=== PATIENT | female | born 1965 | race Caucasian/White ===

== ENCOUNTER → 2017-06-10 11:43 | Outpatient (CLI) | payer BC, SELFPAY ==
[2017-06-10 12:22] LABS: Basophils % 0.2 % (0.1-2.0); Eosinophils # 0.2 K/mm3 (0.0-0.4); Hematocrit 43.1 % (37.0-47.0); Hemoglobin 14.4 g/dL (12.2-16.2); Lymphocytes # 1.9 K/mm3 (0.7-4.5); Lymphocytes % 22.9 K/mm3 (10-50); Mean Corpuscular HGB Conc 33.4 g/dL (31.8-35.4); Mean Corpuscular Hemoglobin 27.4 pg (27.0-31.2); Mean Corpuscular Volume 82.1 fl (81-99); Mean Platelet Volume 7.5 fl (7.4-10.4); Monocytes # 0.4 K/mm3 (0.1-1.0); Monocytes % 4.9 % (1.7-9.3); Neutrophils # 5.8 K/mm3 (1.8-7.8); Platelet Count 295 K/mm3 (142-424); Red Blood Count 5.25 M/mm3 (4.20-5.40); Red Cell Distribution Width 14.3 % (11.5-17.5); White Blood Count 8.3 K/mm3 (4.8-10.8)
[2017-06-10 14:09] LABS: Alanine Aminotransferase 38 U/L (12-78); Albumin Level 3.8 gm/dL (3.4-5.0); Albumin/Globulin Ratio 1.4 (1.1-1.8); Alkaline Phosphatase 104 U/L (46-116); Anion Gap 13.2 mEq/L (5-15); Aspartate Amino Transferase 19 U/L (15-37); Bilirubin,Total 0.3 mg/dL (0.2-1.0); Blood Urea Nitrogen 14 mg/dL (7-18); Calcium 9.3 mg/dL (8.5-10.1); Carbon Dioxide 29 mmol/L (21.0-32.0); Chloride 102 mmol/L (98-107); Estimated Glomerular Filt Rate 105 ml/min (>60); GFR (African American) 127 ML/MIN (>60); Globulin 2.8 gm/dl (1.3-3.2); Glucose 99 mg/dL (74-106); Potassium 3.2 mmoL/L (3.5-5.1); Sodium 141 mmol/L (136-145); Total Protein,Serum 6.6 gm/dL (6.4-8.2)
[2017-06-10 15:26] LABS: Erythrocyte Sedimentation Rate 25 mm/hr (0-30)
== END ==
PROVIDERS: PCP Internal Medicine Adolescent Medicine; Visit Provider Internal Medicine Adolescent Medicine
DX: R51 Headache (principal)
CPT/HCPCS: 36415; 80053; 85025; 85651

== ENCOUNTER → 2017-06-10 12:41 | Outpatient (CLI) | payer BC, SELFPAY ==
--- NOTE | 2017-06-10 12:58 | MR_ITS ---
MR head/brain wo con HISTORY: Severe right-sided temporal headache, visual disturbance ITS.REASON: RIGHT TEMPORAL HEADACHE ORDERING PHYSICIAN: Delio Arcos MD PATIENT AGE: 52 years COMPARISON: None TECHNIQUE: Standard multiplanar multiecho sequences are performed without contrast. FINDINGS: No midline shift, mass effect, intracranial hemorrhage, or hydrocephalus is evident. The cerebellopontine angles, cerebellum, and brainstem are unremarkable. No intra or extra-axial mass is apparent. The pituitary optic chiasm and corpus callosum are unremarkable. No cerebellar tonsillar ectopia. There are a few scattered periventricular subcortical T2 white matter hyperintensities. These are nonspecific and may be seen with ischemic gliotic foci from chronic microvascular changes. Migraine headache could cause these findings as well. Demyelinating process is felt to be less likely based on the imaging characteristics although not totally excluded. No large aneurysms evident. Small aneurysms may not be detected with this technique and may be better evaluated with MRA if clinically warranted. No mastoid effusion or sinus air-fluid level. IMPRESSION: 1. Scattered foci of periventricular and subcortical T2 white matter hyperintensities. These are nonspecific and may be seen with ischemic gliotic foci from chronic microvascular changes. Migraine headache could cause these findings as well. Demyelinating process is felt to be less likely based on the imaging characteristics although not totally excluded 2. Otherwise negative MRI of the brain without contrast
== END ==
PROVIDERS: Family Provider Internal Medicine Adolescent Medicine; PCP Internal Medicine Adolescent Medicine; Visit Provider Internal Medicine Adolescent Medicine
DX: R51 Headache (principal)
CPT/HCPCS: 70551

== ENCOUNTER → 2018-06-12 08:13 | Outpatient (CLI) | payer BC, SELFPAY ==
--- NOTE | 2018-06-12 08:15 | MM_ITS ---
MM Dig screening mamm BI w/CAD CAD Screening COMPARISON: Digital mammograms with CAD 04/29/2017 and 04/27/2016 INDICATION: There is no personal or family history of breast cancer TECHNIQUE: Standard CC and MLO images were obtained. R2 CAD reviewed. FINDINGS: The breasts are composed primarily of fat with minimal scattered fibroglandular densities in each breast. There is a mole marker near the axillary tail the right breast. There is a benign-appearing calcification left breast. There is no suspicious lesion and there are no suspicious microcalcifications. IMPRESSION: Fatty type breast parenchyma with no suspicious lesion seen BI-RADS Category: 2 Benign Finding(s) RECOMMENDED FOLLOW-UP: 1YR - 1 YEAR FOLLOW-UP (A letter has been sent to the patient regarding results of the study.)
== END ==
PROVIDERS: PCP Internal Medicine Adolescent Medicine; Visit Provider Obstetrics & Gynecology
DX: Z12.31 Encounter for screening mammogram for malignant neoplasm of breast (principal)
CPT/HCPCS: 77067

== ENCOUNTER → 2019-02-02 07:28 | Outpatient (CLI) | payer BC, SELFPAY ==
[2019-02-02 15:59] LABS: Alanine Aminotransferase 28 U/L (12-78); Albumin Level 3.6 gm/dL (3.4-5.0); Albumin/Globulin Ratio 1.3 (1.1-1.8); Alkaline Phosphatase 99 U/L (46-116); Anion Gap 10.3 mEq/L (5-15); Aspartate Amino Transferase 19 U/L (15-37); Bilirubin,Total 0.3 mg/dL (0.2-1.0); Blood Urea Nitrogen 20 mg/dL (7-18); Calcium 9.3 mg/dL (8.5-10.1); Carbon Dioxide 32 mmol/L (21.0-32.0); Chloride 104 mmol/L (98-107); Chol/HDL Ratio 3.5 (1-3.5); Cholesterol 190 mg/dL (140-200); Creatinine,Serum 0.48 mg/dL (0.55-1.02); Estimated Glomerular Filt Rate 135 ml/min (>60); GFR (African American) 164 ML/MIN (>60); Globulin 2.8 gm/dl (1.3-3.2); Glucose 91 mg/dL (74-106); HDL Cholesterol 55 mg/dL (29-89); LDL Cholesterol 119 mg/dL (0-130); Potassium 3.3 mmoL/L (3.5-5.1); Sodium 143 mmol/L (136-145); Total Protein,Serum 6.4 gm/dL (6.4-8.2); Triglycerides 79 mg/dL (30-200); VLDL Cholesterol 16 mg/dL (0-40)
== END ==
PROVIDERS: PCP Internal Medicine Adolescent Medicine; Visit Provider Internal Medicine Adolescent Medicine
DX: I10 Essential (primary) hypertension (principal); E78.5 Hyperlipidemia, unspecified
CPT/HCPCS: 36415; 80053; 80061

== ENCOUNTER → 2019-06-14 08:20 | Outpatient (CLI) | payer BC, SELFPAY ==
--- NOTE | 2019-06-14 08:20 | MM_ITS ---
PROCEDURE: MM DIG SCREENING MAMM BI W/CAD CLINICAL INDICATION: screening There is no personal or family history of breast cancer. The patient is on estrogen COMPARISON: [facility] DIG MAMM-SCREEN CHRISTY from 04/27/2016 [facility] DIG MAMM-SCREEN CHRISTY W/CAD from 04/29/2017 [facility] MM Dig screening mamm BI w/CAD from 06/12/2018 TECHNIQUE: Standard CC and MLO images and 3D Tomosynthisis was obtained. R2 CAD reviewed. FINDINGS: Minimal scattered fibroglandular densities are seen throughout both breasts on a background of fatty breast parenchyma. There is a small benign-appearing nodular density near the axillary tail right breast likely a low-lying node. There is no suspicious lesion in either breast and no suspicious microcalcifications. Ronak images were reviewed. IMPRESSION: Fibrofatty parenchyma with no suspicious lesions seen BI-RAD Category: 2 Benign Finding(s) FOLLOW-UP: 1YR 1 Year Follow-up (A letter has been sent to the patient regarding results of the study.) Dictated by: Dr. Prashanth Butler MD 06/15/2019 08:[address] Prashanth Butler MD in [place] 06/15/2019 08:51
--- NOTE | 2019-06-14 08:20 | XR_ITS ---
PROCEDURE: XR DEXA AXIAL SKELETON CLINICAL HISTORY: screening COMPARISON: No exams were available for comparison FINDINGS: Right femoral neck density is 1.029 grams/centimeters sq with a T-score of 0.7 which is normal. Left femoral neck density is 1.006 grams/centimeters sq with a T-score of 0 point which is normal. L1-L4 density has a T-score of 0.5 with a density of 1.102 which is normal IMPRESSION: Normal bone density. Recommend follow-up exam in 2 years Dictated by: Adan Valiente MD 06/14/2019 16:49 Electronically signed by Adan Valiente MD in [place] 06/14/2019 16:49
== END ==
PROVIDERS: PCP Internal Medicine Adolescent Medicine; Visit Provider Obstetrics & Gynecology
DX: Z12.31 Encounter for screening mammogram for malignant neoplasm of breast (principal); Z78.0 Asymptomatic menopausal state
CPT/HCPCS: 77063; 77067; 77080

== ENCOUNTER → 2020-06-24 16:51 | Outpatient (CLI) | payer BC, SELFPAY ==
--- NOTE | 2020-06-24 16:51 | MM_ITS ---
PROCEDURE: MM DIG SCREENING MAMM BI W/CAD Digital Breast Tomosynthesis Included CLINICAL INDICATION: Routine Screening Mammogram There is no personal or family history of breast cancer. COMPARISON: MG [facility] DIG MAMM-SCREEN CHRISTY W/CAD from 04/29/2017 MG [facility] MM Dig screening mamm BI w/CAD from 06/12/2018 MG MM DIG SCREENING MAMM BI W/CAD from 06/14/2019 TECHNIQUE: Standard CC and MLO images and 3D Tomosynthesis was obtained. R2 CAD reviewed. FINDINGS: The breasts are composed primarily of fat with very minimal scattered fibroglandular densities in each breast. There are couple mole markers on each breast. There is a benign-appearing calcification left breast. There is no suspicious lesion in either breast and no suspicious microcalcifications. There are stable small nodes in both axilla. IMPRESSION: Fatty type breast parenchyma with no suspicious lesions seen BI-RAD Category: 2 Benign Finding(s) FOLLOW-UP: 1YR 1 Year Follow-up (A letter has been sent to the patient regarding results of the study.) Dictated by: Dr. Prashanth Butler MD 06/27/2020 11:13 Dr. Prashanth Butler MD in [place] 06/27/2020 11:13
== END ==
PROVIDERS: PCP Internal Medicine Adolescent Medicine; Visit Provider Obstetrics & Gynecology
DX: Z12.31 Encounter for screening mammogram for malignant neoplasm of breast (principal)
CPT/HCPCS: 77063; 77067

== ENCOUNTER → 2021-04-01 07:57 | Outpatient (CLI) | payer BC, SELFPAY ==
[2021-04-01 14:49] LABS: Basophils # 0.1 K/mm3 (0-0.2); Basophils % 1.9 % (0.1-2.0); Eosinophils # 0.2 K/mm3 (0.0-0.4); Hemoglobin 13.6 g/dL (12.2-16.2); Lymphocytes # 1.4 K/mm3 (0.7-4.5); Lymphocytes % 27.9 % (10-50); Mean Corpuscular HGB Conc 33.3 g/dL (31.8-35.4); Mean Corpuscular Hemoglobin 27.4 pg (27.0-31.2); Mean Corpuscular Volume 82.5 fl (81-99); Mean Platelet Volume 9.2 fl (7.4-10.4); Monocytes # 0.3 K/mm3 (0.1-1.0); Monocytes % 6.7 % (1.7-9.3); Neutrophils % 59.5 % (37.0-80.0); Platelet Count 285 K/mm3 (142-424); Red Blood Count 4.97 M/mm3 (4.20-5.40); Red Cell Distribution Width 14.7 % (11.5-17.5)
[2021-04-01 15:41] LABS: Alanine Aminotransferase 31 U/L (12-78); Albumin Level 3.8 g/dl (3.5-5.0); Albumin/Globulin Ratio 1.6 (1.1-1.8); Alkaline Phosphatase 92 U/L (38-126); Anion Gap 7.2 mEq/L (5-15); Aspartate Amino Transferase 31 U/L (14-36); Bilirubin,Total 0.2 mg/dl (0.2-1.3); Blood Urea Nitrogen 22 mg/dl (7-17); Calcium 9.2 mg/dl (8.4-10.2); Carbon Dioxide 35 mmol/L (22.0-30.0); Chloride 101 mmol/L (98-107); Cholesterol 180 mg/dl (140-200); Estimated Glomerular Filt Rate 104 ml/min (>60); GFR (African American) 126 ML/MIN (>60); Globulin 2.4 g/dL (1.3-3.2); Glucose 106 mg/dl (74-100); HDL Cholesterol 60 mg/dl (40-60); Potassium 3.2 mmoL/L (3.5-5.1); Sodium 140 mmol/L (136-145); Total Protein,Serum 6.2 g/dl (6.3-8.2); Triglycerides 95 mg/dl (30-150); VLDL Cholesterol 19 mg/dL (0-40)
[2021-04-01 15:52] LABS: Direct LDL Cholesterol 100.91 mg/dL (100-129)
[2021-04-01 16:00] LABS: Triiodothryronine (T3) Uptake 28 % (23.5-40.5)
[2021-04-01 16:01] LABS: Free Thyroxine Index 3.6 ug/dL (5.93-13.13)
[2021-04-01 16:29] LABS: Vitamin B12 435 pg/mL (239-931)
== END ==
PROVIDERS: PCP Internal Medicine Adolescent Medicine; Visit Provider Internal Medicine Adolescent Medicine
DX: R00.2 Palpitations (principal); E78.5 Hyperlipidemia, unspecified; E66.9 Obesity, unspecified; Z68.41 Body mass index [BMI] 40.0-44.9, adult
CPT/HCPCS: 36415; 80053; 80061; 82607; 84436; 84443; 84479; 85025; 93225; 93226

== ENCOUNTER 2021-06-27 16:02 | Emergency (ER) | payer BC, SELFPAY ==
--- NOTE | 2021-06-27 16:21 | HMH.EDUTC ---
[facility] Disposition Clinical Impression: Exposure to COVID-19 virus, Viral syndrome Disposition: Home, Self-Care Condition on Discharge: Good Instructions: Preventing the Spread of Coronavirus Discharge Instructions, DI for COVID-19 (Suspected or Confirmed ), DI for Viral Syndrome Additional Instructions: Drink plenty of fluids. Take tylenol or ibuprofen for pain or fever. Take the medications as directed. Follow up with your regular doctor. GO TO THE ER FOR ANY WORSENING SYMPTOMS Quarantine until you know the results of your covid-19 test. Notify your school or workplace of your results and follow their instructions regarding return to work/school. The cough medication (promethazine dm) will make you drowsy, so don't drive or operate heavy machinery after taking it. Prescriptions: Promethazine/Dextromethorphan [Promethazine-Dm Syrup] 5 ml PO Q6HP PRN #240 ml PRN Reason: Cough Transmission Status: [facility] Ondansetron [Zofran 4mg ODT] 4 mg PO Q8HP PRN #20 tab PRN Reason: Nausea Transmission Status: [facility] to [id number] Azithromycin [Z-Pravin 250mg Tab*] 250 mg PO UD DOSE PK #6 tab Transmission Status: P[facility] to [facility] Referrals: Delio Arcos MD [Primary Care Provider] - Time of Disposition: 17:16 Medical Decision Making - Medical Records Medical records reviewed: No: I reviewed the patient's medical records. - Rodney Inquiry Pt receiving controlled substance: No Vital Signs: 06/27/21 16:32 Temperature 98.1 F Temperature Source Oral Pulse Rate [Left] 78 Respiratory Rate 18 Blood Pressure [Right Arm] 197/85 H Blood Pressure Mean [Right Arm] 122 02 Sat by Pulse Oximetry 95 - Lab Data Lab results reviewed: Yes: I reviewed the patient's lab results. Orders (Tests/Meds): ORDERS Category Date Time Status Covid-19 Nasal PCR ([facility]) Routine Lab 06/27/21 16:18 Received [facility] HPI - General Stated complaint: covid test Time Seen by Provider: 06/27/21 16:22 - History of Present Illness Provider Complaint: She states that she started to feel bad yesterday. She has taken 2 home covid-19 test and both have had faint positive lines. She is her to confirm whether not she has covid-19 and to have a pcr covid-19 test that her work will accept. She has been fully vaccinated against covid-19. She denies any shortness of breath, but she has had a dry cough. She also has had body aches, chills and low grade fever. - Related Data Home Medications Medication Instructions Recorded Confirmed celecoxib 200 mg capsule 200 mg PO BID 04/02/18 05/19/18 famotidine 20 mg tablet 20 mg PO DAILY 04/02/18 05/19/18 losartan 100 1 tab PO DAILY 06/09/20 mg-hydrochlorothiazide 25 mg tablet Previous Rx's Medication Instructions Recorded Azithromycin [Z-Pravin 250mg Tab*] 250 mg PO UD DOSE PK #6 tab 06/27/21 Ondansetron [Zofran 4mg ODT] 4 mg PO Q8HP PRN #20 tab 06/27/21 Promethazine/Dextromethorphan 5 ml PO Q6HP PRN #240 ml 06/27/21 [Promethazine-Dm Syrup] Allergies Allergy/AdvReac Type Severity Reaction Status Date / Time No Known Allergies Allergy Verified 06/09/20 15:47 [facility] History - Hepatitis A Screen Attestation statement:: This patient has been screened for Hepatitis A risk factors. I have reviewed the patient's past medical history: Yes Medical History: Reports:: Gastroesophageal Reflux Disease(GERD), Hypertension Other Surgeries: Yes: Cholecystectomy, Hysterectomy-Partial, Tubal Ligation, Other Amputation: No Fractures: No Comment: 2004- BTC. 2004- LAVH,. 2007- EXCISION OF PROLAPSED TUBE. 2011- POLYP REMOVED FROM RT. EAR. 2012- LAP CHOLECYSTECTOMY - Social History Smoking Status: Former smoker Alcohol Intake: current Alcohol Intake Frequency:: a few times a week Substance Use Type: denies use Occupational Status: employed Housing: house Household Members: spouse Family Hx:: Heart Attack, Hy
[2021-06-27 16:32] VITALS: BP 197/85; PULSE 78; RESP 18; TEMP 36.7; O2SAT 95; BMI 48.0
[2021-06-27 17:27] VITALS: BP 197/85; PULSE 78; RESP 18; TEMP 36.7
== END 2021-06-27 17:28 | disposition home or self-care (01) ==
PROVIDERS: Emergency Provider Nurse Practitioner Family; PCP Internal Medicine Adolescent Medicine
DX: U07.1 COVID-19 (principal); I10 Essential (primary) hypertension; K21.9 Gastro-esophageal reflux disease without esophagitis; Z87.891 Personal history of nicotine dependence; Z79.899 Other long term (current) drug therapy
CPT/HCPCS: 99202; C9803; G0463; U0003; U0005

== ENCOUNTER 2022-01-30 17:46 | Emergency (ER) | payer BC, SELFPAY ==
[2022-01-30 18:27] VITALS: BP 177/85; PULSE 79; RESP 18; TEMP 37.3; O2SAT 97; BMI 46.5
[2022-01-30 18:31] LABS: UTC Strep Screen (Rapid) Negative (Negative)
--- NOTE | 2022-01-30 19:17 | EXP.UTC ---
Discharge Plan Disposition Patient Disposition: Home, Self-Care Condition: Good Prescriptions Prescriptions: New benzonatate 100 mg capsule 100 mg PO TID PRN (Reason: cough) Qty: 30 0RF azithromycin 250 mg tablet See Rx Instructions .ROUTE .COMPLEX Qty: 6 0RF Rx Instructions: For 250 mg dose pack: take 500 mg today (day 1), then 250 mg for 4 days (days 2-5) No Action losartan-hydrochlorothiazide 100-25 mg tablet 1 tab PO DAILY celecoxib [Celebrex] 200 mg capsule 200 mg PO BID famotidine 20 mg tablet 20 mg PO DAILY potassium chloride 10 mEq tablet extended release 10 meq PO DAILY Label Comments: TAKE 1 TABLET BY MOUTH ONCE DAILY trazodone 50 mg tablet 50 mg PO HS Label Comments: TAKE 1/2 TO 1 (ONE-HALF TO ONE) TABLET BY MOUTH AT NIGHT metoprolol succinate 50 mg tablet extended release 24 hr 50 mg PO DAILY Label Comments: TAKE 1 TABLET BY MOUTH ONCE DAILY Referrals Follow up/Referrals: Delio Arcos MD [Primary Care Provider] - See instructions Activity Restrictions/Add. Instructions Additional Instructions/Restrictions: Wait one week and if symptoms persist or worsen may start antibiotic. Increase fluids and rest. Clinical Impressions Clinical Impression: Acute upper respiratory infection Instructions Patient Instructions: DI for Viral Upper Respiratory Infection -- Adult, DI for Viral Pharyngitis Discharge ED Provider: Neeru Townsend [facility] General Stated complaint: Cough,cold Mode of Arrival: Ambulatory Source of Information: Patient Limitations: No Limitations Time Seen by Provider: 01/30/22 19:18 Description of Symptoms (Recalled from Triage Doc. by RN): pt comes in with c/o cough, sinus pressure, congestion, ear pressure and sore throat. symptoms began 3 days ago. HEENT Symptoms (Recalled from RN notes): Yes Resp Symptoms (Recalled from RN notes): Yes Skin Symptoms (Recalled from RN notes): No MS Symptoms (Recalled from RN notes): No Functional Status (Recalled from RN notes): n/a History of Present Illness Provider Complaint: Pt states that 3 days ago she started feeling ill with cough, clear sinus drainage, sore throat with blisters, and congestion. She has taken cough medication for her symptoms. She states that she did not take any of her medication today as she forgot. Related Data Home Medications Medication Instructions Recorded Confirmed celecoxib 200 mg capsule (Celebrex) 200 mg PO BID Arthritis 04/02/18 01/30/22 famotidine 20 mg tablet 20 mg PO DAILY GERD 04/02/18 01/30/22 losartan 100 1 tab PO DAILY High blood pressure 06/09/20 01/30/22 mg-hydrochlorothiazide 25 mg tablet metoprolol succinate 50 mg 50 mg PO DAILY High blood pressure 01/30/22 01/30/22 tablet,extended release 24 hr potassium chloride 10 mEq 10 meq PO DAILY Supplement 01/30/22 01/30/22 tablet,extended release trazodone 50 mg tablet 50 mg PO HS Insomnia 01/30/22 01/30/22 Previous Rx's Medication Instructions Recorded azithromycin 250 mg tablet See Rx Instructions PO .COMPLEX #6 01/30/22 tabs benzonatate 100 mg capsule 100 mg PO TID PRN cough #30 caps 01/30/22 Allergies Allergy/AdvReac Type Severity Reaction Status Date / Time No Known Allergies Allergy Verified 01/30/22 18:31 Worker's Comp Is this a Worker's Comp case?: No PFSH PFSH Social History Smoking Status: Former smoker alcohol intake: current substance use type: denies use current occupational status: employed Travel in the last 8 weeks: None household members: spouse housing: house ROS Obtained: Yes All systems reviewed & no additional complaints except as documented Constitutional Constitutional: Reports as per HPI, Reports fever(s) and Reports malaise Eyes Eyes: Reports system reviewed and no additional complaints, except as documented ENT Ears, Nose, Mouth, and Throat: Reports nasal congestion, Reports nasal discharge,
[2022-01-30 19:32] VITALS: BP 177/85; PULSE 79; RESP 18; TEMP 37.3
== END 2022-01-30 19:36 | disposition home or self-care (01) ==
PROVIDERS: Emergency Provider Nurse Practitioner Family; PCP Internal Medicine Adolescent Medicine
DX: U07.1 COVID-19 (principal); J02.9 Acute pharyngitis, unspecified; J06.9 Acute upper respiratory infection, unspecified; H92.03 Otalgia, bilateral; Z87.891 Personal history of nicotine dependence
CPT/HCPCS: 87880; 99213; C9803; G0463; U0003; U0005

== ENCOUNTER → 2022-07-23 07:54 | Outpatient (CLI) | payer BC, SELFPAY ==
--- NOTE | 2022-07-23 07:59 | MM_ITS ---
PROCEDURE INFORMATION: Exam: MG Bilateral Screening 3D Mammography Exam date and time: 07/23/2022 7:54 AM Age: 57 years old Clinical indication: Screening examination TECHNIQUE: Imaging protocol: Bilateral Screening tomosynthesis and 2D mammography including computer-aided detection (CAD) when performed. COMPARISON: 1. MG MM DIG SCREENING MAMM BI W/CAD 06/24/2020 4:55 PM 2. MG MM DIG SCREENING MAMM BI W/CAD 06/14/2019 8:37 AM FINDINGS: MAMMOGRAPHY: Breast composition: The breasts are almost entirely fatty. Mass: None. Architectural distortion: None. Calcifications: No suspicious calcifications. Asymmetric density: None. Skin thickening: None. Axillary adenopathy: None. IMPRESSION: No mammographic evidence of malignancy. Annual screening is recommended unless otherwise clinically indicated. ASSESSMENT: BI-RADS Category 1: Negative
== END ==
PROVIDERS: PCP Internal Medicine Adolescent Medicine; Visit Provider Obstetrics & Gynecology
DX: Z12.31 Encounter for screening mammogram for malignant neoplasm of breast (principal)
CPT/HCPCS: 77063; 77067

== ENCOUNTER → 2023-01-14 12:00 | Outpatient (CLI) | payer BC, SELFPAY | PROVIDERS: PCP Internal Medicine Adolescent Medicine; Visit Provider Nurse Practitioner Family | DX: R05.9 Cough, unspecified (principal) | CPT/HCPCS: 87635 ==

== ENCOUNTER 2023-06-21 11:41 | Emergency (ER) | payer BC, SELFPAY ==
--- NOTE | 2023-06-21 12:42 | ED_ITS ---
Discharge Plan Disposition Patient Disposition: Still a Patient Condition: Fair Prescriptions Prescriptions: No Action losartan-hydrochlorothiazide 100-25 mg tablet 1 tab PO DAILY celecoxib [Celebrex] 200 mg capsule 200 mg PO BID potassium chloride 10 mEq tablet extended release 10 meq PO DAILY Patient Comments: TAKE 1 TABLET BY MOUTH ONCE DAILY trazodone 50 mg tablet 50 mg PO HS Patient Comments: TAKE 1/2 TO 1 (ONE-HALF TO ONE) TABLET BY MOUTH AT NIGHT metoprolol succinate 50 mg tablet extended release 24 hr 50 mg PO DAILY Patient Comments: TAKE 1 TABLET BY MOUTH ONCE DAILY Referrals Follow up/Referrals: Delio Arcos MD [Primary Care Provider] - See instructions Clinical Impressions Clinical Impression: Blurred vision, Elevated blood pressure reading Discharge ED Provider: Lukasz Ziegler [facility] HPI General Stated complaint: blurry vision Time Seen by Provider: 06/21/23 12:42 History of Present Illness Provider Complaint: She states that she began having blurry vision on her drive to work this morning. She wasn't having any other symptoms, so she stopped and took out her contacts and put her glasses on. This did not help her blurry vision, so she called her pcp (Dr. Arcos). She was instructed to go to the ER. Once she got to the hospital she states that she began to feel some better so she signed in to the [facility] instead. She states at this time her vision feels better, but still not right . She is also having a mild headache located in the back of her head/upper neck. Related Data Home Medications Medication Instructions Recorded Confirmed celecoxib 200 mg capsule (Celebrex) 200 mg PO BID Arthritis 04/02/18 06/21/23 losartan 100 1 tab PO DAILY High blood pressure 06/09/20 06/21/23 mg-hydrochlorothiazide 25 mg tablet metoprolol succinate 50 mg 50 mg PO DAILY High blood pressure 01/30/22 06/21/23 tablet,extended release 24 hr potassium chloride 10 mEq 10 meq PO DAILY Supplement 01/30/22 06/21/23 tablet,extended release trazodone 50 mg tablet 50 mg PO HS Insomnia 01/30/22 06/21/23 Allergies Allergy/AdvReac Type Severity Reaction Status Date / Time No Known Allergies Allergy Verified 06/21/23 13:07 [facility] Disclaimer: The information contained in this section may have been updated after the patient was seen, as this information can be updated by other users. Medical History (Updated 06/21/23 @ 13:17 by Lukasz Ziegler APRN) Hypertension Surgical History History of hysterectomy Hx of cholecystectomy Hx of tubal ligation Family History Father Cancer Stomach Mother Diabetes Other Hypertension Social History Smoking Status: Former smoker alcohol intake: current substance use type: denies use current occupational status: employed Travel in the last 8 weeks: None household members: spouse housing: house ROS Obtained: Yes All systems reviewed & no additional complaints except as documented Constitutional Constitutional: Denies chills and Denies fever(s) Eyes Eyes: Denies eye discharge ENT Ears, Nose, Mouth, and Throat: Denies dizziness, Denies otalgia and Denies sore throat Cardiovascular Cardiovascular: Denies chest pain Respiratory Respiratory: Denies shortness of breath, Denies chest congestion, Denies cough, Denies stridor and Denies wheezing Gastrointestinal Gastrointestingal: Denies nausea or vomiting Musculoskeletal Musculoskeletal: Reports system reviewed and no additional complaints, except as documented and Denies arthralgias Integumentary/Breasts Skin/Breast: Denies rash Neurologic Neurologic: Denies dizziness and Denies paresthesias Allergic/Immunologic Allergic/Immunologic: Denies wheezing Physical Exam General General appearance: alert and in no apparent distress Head Head exam: atraumatic, normocephalic and normal inspection Eye Eye exam: Present normal appearance, PERRL and EOMI ENT ENT exam: Present normal exam, normal oropharynx, mucous membranes moist, TM's normal bilaterally and normal external ear exam Neck Neck exam: Present normal inspection, full ROM and trachea midline; Absent meningismus or lymphadenopathy Chest Chest inspection: Present normal inspection and symmetric chest wall rise; Absent tenderness Respiratory Respiratory exam: Present normal lung sounds bilaterally; Absent respiratory distress Cardiovascular Cardiovascular exam: Present regular rate and normal rhythm; Absent JVD Abdominal Exam Abdominal exam: Present soft and normal bowel sounds; Absent distention, tenderness or guarding Extremities Exam Extremities exam: Present normal inspection, full ROM and normal capillary refill; Absent calf tenderness Back Exam Back exam: Present normal inspection; Absent tenderness Neurological Exam Neurological exam: Present alert and oriented X3 Psychiatric Psychiatric exam: Present normal affect and normal mood Skin Skin exam: Present warm, dry, intact and normal color Lymphatic Lymphatic Findings: no adenopathy Medical Decision Making Medical Records Medical records reviewed: No I reviewed the patient's medical records. Rodney Inquiry Pt receiving controlled substance: No
[2023-06-21 12:47] VITALS: BP 162/88; PULSE 74; RESP 18; TEMP 36.9; O2SAT 96; BMI 52.7
[2023-06-21 13:22] VITALS: BP 192/80; PULSE 74; RESP 19; TEMP 36.9; O2SAT 95; BMI 52.7
--- NOTE | 2023-06-21 13:23 | PC.NURSE ---
pt arrived to er from [facility]
--- NOTE | 2023-06-21 13:45 | ECG_ITS ---
APPROVED REPORT Exam: Resting ECG HR:58 bpm ECG Measurements Heart Rate 58 AXES [place] 151 P 46 QRSd 160 QRS 26 QT 463 T 105 QTc 460 Conclusion SINUS BRADYCARDIA LEFT BUNDLE BRANCH BLOCK [120+ ms QRS DURATION, 80+ ms Q/S IN V1/V2, 85+ ms R IN I/aVL/V5/V6] ABNORMAL ECG UNCONFIRMED REPORT Electronically signed by : Delio Arcos MD 06/22/2023 21:47:02
[2023-06-21 13:49] LABS: Basophils % 0.6 % (0.1-2.0); Eosinophils # 0.1 K/mm3 (0.0-0.4); Eosinophils % 2.2 % (0.1-12.0); Hematocrit 42.9 % (37.0-47.0); Hemoglobin 14.6 g/dL (12.2-16.2); Lymphocytes # 1.6 K/mm3 (0.7-4.5); Lymphocytes % 24.9 % (10-50); Mean Corpuscular Hemoglobin 27.9 pg (27.0-31.2); Mean Platelet Volume 7.6 fl (7.4-10.4); Monocytes # 0.4 K/mm3 (0.1-1.0); Monocytes % 6.1 % (1.7-9.3); Neutrophils # 4.4 K/mm3 (1.8-7.8); Neutrophils % 66.3 % (37.0-80.0); Platelet Count 272 K/mm3 (142-424); Red Blood Count 5.23 M/mm3 (4.20-5.40); Red Cell Distribution Width 14.6 % (11.5-17.5); White Blood Count 6.6 K/mm3 (4.8-10.8)
[2023-06-21 13:59] LABS: Chloride 100 mmol/L (98-107); Sodium 138 mmol/L (136-145)
[2023-06-21 14:00] LABS: Potassium 3.5 mmoL/L (3.5-5.1)
[2023-06-21 14:02] LABS: Alanine Aminotransferase 30 U/L (12-78); Albumin Level 4.1 g/dl (3.5-5.0); Albumin/Globulin Ratio 1.4 (1.1-1.8); Alkaline Phosphatase 117 U/L (38-126); Anion Gap 5.5 mEq/L (5-15); Aspartate Amino Transferase 34 U/L (14-36); Bilirubin,Total 0.5 mg/dl (0.2-1.3); Blood Urea Nitrogen 17 mg/dl (7-17); Carbon Dioxide 36 mmol/L (22.0-30.0); Creatinine Clearance Estimated 110 mL/min (50-200); Estimated Glomerular Filt Rate 127 ml/min (>60); GFR (African American) 153 ML/MIN (>60); Total Protein,Serum 7.1 g/dl (6.3-8.2)
[2023-06-21 14:03] LABS: Calcium 9.5 mg/dl (8.4-10.2); Glucose 101 mg/dl (74-100)
[2023-06-21] MEDS: CARVEDILOL 25MG TABLET 25 MG PO (14:05)
[2023-06-21 14:08] VITALS: BP 165/69; PULSE 64; O2SAT 97
[2023-06-21 14:31] VITALS: BP 152/58; PULSE 64; O2SAT 96
[2023-06-21 14:31] LABS: Troponin I < 0.01 ng/ml (0.00-0.034)
[2023-06-21 14:59] LABS: NT Pro Brain Natriuretic Pep. 272 pg/mL (0-125)
--- NOTE | 2023-06-21 15:04 | ED_ITS ---
Discharge Plan Disposition Patient Disposition: Home, Self-Care Condition: Fair Prescriptions Prescriptions: New carvedilol 25 mg tablet 25 mg PO BID Qty: 60 0RF Rx Instructions: must administer with a meal/food Discontinued metoprolol succinate 50 mg tablet extended release 24 hr 50 mg PO DAILY Patient Comments: TAKE 1 TABLET BY MOUTH ONCE DAILY No Action losartan-hydrochlorothiazide 100-25 mg tablet 1 tab PO DAILY celecoxib [Celebrex] 200 mg capsule 200 mg PO BID potassium chloride 10 mEq tablet extended release 10 meq PO DAILY Patient Comments: TAKE 1 TABLET BY MOUTH ONCE DAILY trazodone 50 mg tablet 50 mg PO HS Patient Comments: TAKE 1/2 TO 1 (ONE-HALF TO ONE) TABLET BY MOUTH AT NIGHT Referrals Follow up/Referrals: Delio Arcos MD [Primary Care Provider] - See instructions Activity Restrictions/Add. Instructions Additional Instructions/Restrictions: Stop taking metoprolol, start taking carvedilol twice daily. Call your family doctor to establish care for this visit to the emergency department and schedule follow-up within 48 hours to ensure improvement. If you have any worsening of your condition or any other concerning signs or symptoms, return to the emergency department or your primary care doctor for further evaluation. Cardiology information here, call them to schedule an appointment. Clinical Impressions Clinical Impression: Blurred vision, Elevated blood pressure reading Discharge ED Provider: Raphael Winston General Adult HPI General Chief complaint: Recheck/Abnormal Lab/Rx Stated complaint: blurry vision Time Seen by Provider: 06/21/23 12:42 Mode of Arrival: Ambulatory Source of Information: Patient Limitations: No Limitations Description of Symptoms (Recalled from ER Triage Doc. by RN): pt is transfer from [facility]. pt reports to [facility] for headache and blurry vision and pain at base of skull. pt reports she called her PCP and was told to come to ED. pt reports while she was driving to work her eyes became cloudy. symptoms have resolved at this time. History of Present Illness HPI narrative: 58-year-old female presenting with headache and blurry vision in the setting of hypertension. Not currently symptomatic, but happened earlier today while she was driving and it concerned her enough that she went to the primary care physician. PCP told her to come to the emergency department. Patient not currently having symptoms on my exam Related Data Home Medications Medication Instructions Recorded Confirmed celecoxib 200 mg capsule (Celebrex) 200 mg PO BID Arthritis 04/02/18 06/21/23 losartan 100 1 tab PO DAILY High blood pressure 06/09/20 06/21/23 mg-hydrochlorothiazide 25 mg tablet potassium chloride 10 mEq 10 meq PO DAILY Supplement 01/30/22 06/21/23 tablet,extended release trazodone 50 mg tablet 50 mg PO HS Insomnia 01/30/22 06/21/23 Previous Rx's Medication Instructions Recorded carvedilol 25 mg tablet 25 mg PO BID #60 tabs 06/21/23 Allergies Allergy/AdvReac Type Severity Reaction Status Date / Time No Known Allergies Allergy Verified 06/21/23 13:07 [facility] Disclaimer: The information contained in this section may have been updated after the patient was seen, as this information can be updated by other users. Medical History (Updated 06/21/23 @ 13:17 by Lukasz Ziegler APRN) Hypertension Surgical History History of hysterectomy Hx of cholecystectomy Hx of tubal ligation Family History Father Cancer Stomach Mother Diabetes Other Hypertension Social History Smoking Status: Former smoker alcohol intake: current substance use type: denies use current occupational status: employed Travel in the last 8 weeks: None household members: spouse housing: house ROS Obtained: Yes All systems reviewed & no additional complaints except as documented Physical Exam General General appearance: alert and in no apparent distress Head Head exam: atraumatic and normocephalic Eye Eye exam: Present normal appearance, PERRL and EOMI ENT ENT exam: Present mucous membranes moist Neck Neck exam: Present normal inspection, full ROM and trachea midline Respiratory Respiratory exam: Absent respiratory distress, wheezes, stridor, accessory muscle use or prolonged expiratory phase Cardiovascular Cardiovascular exam: Present normal rhythm Abdominal Exam Abdominal exam: Present soft; Absent distention, tenderness, guarding, rebound or rigidity Extremities Exam Extremities exam: Absent edema Neurological Exam Neurological exam: Present alert, oriented X3, CN II-XII intact and normal gait; Absent motor sensory deficit Skin Skin exam: Present warm and dry; Absent diaphoresis or erythema Medical Decision Making Medical Records Medical records reviewed: Yes I reviewed the patient's medical records. Rodney Inquiry Pt receiving controlled substance: No Rodney was queried for this patient: No Vital Signs: 06/21/23 12:47 06/21/23 13:22 06/21/23 14:08 Temperature 98.5 F 98.4 F Temperature Source Oral Oral Pulse Rate 64 Pulse Rate [Right Radial] 74 74 Respiratory Rate 18 19 Blood Pressure 165/69 H Blood Pressure [Right Arm] 162/88 H 192/80 H Blood Pressure Mean [Right Arm] 112 117 Blood Pressure Source [Right Arm] Manual Cuff/ Auscultation Blood Pressure Position [Right Arm] Sitting 02 Sat by Pulse Oximetry 96 95 97 Oxygen Delivery Method Room Air Room Air Room Air 06/21/23 14:31 06/21/23 15:14 Temperature 98.0 F Temperature Source Pulse Rate 64 65 Pulse Rate [Right Radial] Respiratory Rate 15 Blood Pressure 152/58 H 167/75 H Blood Pressure [Right Arm] Blood Pressure Mean [Right Arm] Blood Pressure Source [Right Arm] Blood Pressure Position [Right Arm] 02 Sat by Pulse Oximetry 96 Oxygen Delivery Method Room Air Room Air Lab Data Lab Results 06/21/23 13:37: WBC 6.6, RBC 5.23, Hgb 14.6, Hct 42.9, MCV 82.0, MCH 27.9, MCHC 34.0, RDW 14.6, Plt Count 272, MPV 7.6, Neut % (Auto) 66.3, Lymph % (Auto) 24.9, [place] % (Auto) 6.1, Eos % (Auto) 2.2, Baso % (Auto) 0.6, Neut # (Auto) 4.4, Lymph # (Auto) 1.6, [place] # (Auto) 0.4, Eos # (Auto) 0.1, Baso # (Auto) 0.0, Sodium 138, Potassium 3.5, Chloride 100, Carbon Dioxide 36 H, Anion Gap 5.5, BUN 17, Creatinine 0.50 L, Estimated Creat Clear 110, Estimated GFR 127, Est GFR ( Amer) 153, Glucose 101 H, Calcium 9.5, Total Bilirubin 0.5, AST 34, ALT 30, Alkaline Phosphatase 117, Troponin I < 0.01, NT-Pro-B Natriuret Pep 272 H, Total Protein 7.1, Albumin 4.1, Globulin 3.0, Albumin/Globulin Ratio 1.4 06/21/23 13:37 06/21/23 13:37 Orders (Tests/Meds): ED MEDICATIONS Discontinued Medications Generic Name Dose Route Start Last Admin Trade Name Carmelita PINEDA Reason Stop Dose Admin Carvedilol 25 mg 06/21/23 13:43 06/21/23 14:05 Carvedilol 25mg Tablet PO 06/21/23 13:44 25 mg ONCE ONE Administration Labetalol HCl 10 mg 06/21/23 13:25 06/21/23 13:47 Labetalol 20mg/4ml Syringe IV 06/21/23 13:26 Not Given ONCE ONE ORDERS Category Date Time Status Brain Natriuretic Peptide Stat Lab 06/21/23 13:37 Completed CBC w/Auto Diff [Complete Blood Count Auto Diff] Stat Lab 06/21/23 13:37 Completed CMP [Comprehensive Metabolic Panel] Stat Lab 06/21/23 13:37 Completed Trop I [Troponin I] Stat Lab 06/21/23 13:37 Completed ECG initial Besson Routine Y 06/21/23 13:45 Completed Medical Decision Narrative: 58-year-old female presenting with headache and blurry vision in the setting of hypertension. Not currently symptomatic, but happened earlier today while she was driving and it concerned her enough that she went to the primary care physician. PCP told her to come to the emergency department. Patient not currently having symptoms on my exa. History was obtained via conversation with patient. On arrival, patient hemodynamically stable, alert, oriented x4, appropriate, GCS 15, moving all extremities spontaneously, pupils equal and reactive to light. Full physical exam performed and significant for well-appearing woman in no acute distress. Hypertensive, neurologically intact. Cardiopulmonary exam within normal limits. Patient not currently having any complaints. Differential includes symptomatic hypertension, hypertensive urgency, hypertensive emergency, migraine disorder, among others. Patient was given p.o. carvedilol for symptomatic management and correction of underlying abnormalities. Workup independently interpreted and significant for nonactionable CBC or chemistry. Troponin negative. See radiology read for full review of final results. Independent interpretation of EKG shows sinus bradycardia 58 beats a minute with associated left bundle branch block morphology. Sgarbossa negative. On reevaluation, patient resting comfortably in bed. given patient presentation, workup, history, this most likely represents hypertensive urgency and associated vision changes. Because patient at baseline without signs or symptoms of clinical decompensation, deemed appropriate for discharge. Results were relayed to patient who voiced understanding and were agreeable to outpatient management and follow up. At the time of discharge the patient was hemodynamically stable, tolerating PO, and mobilizing appropriately. Given recommendations for cardiology follow-up and metoprolol once daily switched to carvedilol twice daily. Critical Care Critical Care Time Critical Care Time: No
[2023-06-21 15:14] VITALS: BP 167/75; PULSE 65; RESP 15; TEMP 36.7; O2SAT 97
== END 2023-06-21 15:15 | disposition home or self-care (01) ==
LOC: UTC 13:17 → ER 13:20
PROVIDERS: Emergency Provider Emergency Medicine; PCP Internal Medicine Adolescent Medicine
DX: R51.9 Headache, unspecified (principal); H53.8 Other visual disturbances; I10 Essential (primary) hypertension; R00.1 Bradycardia, unspecified; Z87.891 Personal history of nicotine dependence; I16.0 Hypertensive urgency
CPT/HCPCS: 80053; 83880; 84484; 85025; 93005; 99285

== ENCOUNTER 2023-07-28 08:02 | Outpatient (CLI) | payer BC, SELFPAY ==
--- NOTE | 2023-07-28 08:03 | NM_ITS ---
APPROVED REPORT Exam: Nuclear Stress Test Indication: Palpitations, Fatigue, HTN, Family history Patient Location: Outpatient Stress Tech: Sangita LAWRENCE Tech:CHEYENNE Eller RT(R)(N) Ht: 5 ft 5 in Wt: 300 lbs Bra Size: 46DD HR: 58 bpm BP: 141/62 mmHg BSA: 2.35 m2 Rhythm: NSR TID: 1.21 BMI: 49.9 History: Palpitations, Fatigue, HTN, Family history Procedure: Patient received 0.4 mg of intravenous Lexiscan, resting heart rate 58 bpm, resting blood pressure 141/62 mmHg, with Lexiscan maximum heart rate achieved was 81 bpm which is % of the maximum predicted heart rate and blood pressure was 141/62 mmHg. With Lexiscan, patient denied any complaint of chest pain. Cardiac Stress and Resting SPECT Images: Cardiac Stress and Resting SPECT images were obtained using technetium 99m Myoview 32.9 mCi stress and 10.32 mCi at rest. Resting and stress imaging in supine and prone positions demonstrated a medium sized, moderate, fixed perfusion defect in the mid to distal anterior LV wall involving the LV apex, as well as a small sized, moderate, fixed perfusion defect in the basal lateral LV wall. There is also increase in transient ischemic dilatation ratio (TID 1.21), suggestive of possible multivessel disease or balanced ischemia. Gated imaging demonstrates low normal global LV systolic function. There is mild hypokinesis of the distal anterior LV wall. LVEF is calculated at 53%. Conclusion: Medium sized, moderate, fixed perfusion defect in the mid to distal anterior LV wall involving the LV apex, as well as a small sized, moderate, fixed perfusion defect in the basal lateral LV wall. There is also increase in transient ischemic dilatation ratio (TID 1.21), suggestive of possible multivessel disease or balanced ischemia. Gated imaging demonstrates low normal global LV systolic function. There is mild hypokinesis of the distal anterior LV wall. LVEF is calculated at 53%. Electronically signed by : Paige Rush MD 08/02/2023 11:15:59
--- NOTE | 2023-07-28 08:15 | CA_ITS ---
APPROVED REPORT EXAM: Comprehensive 2D, Doppler, and color-flow Echocardiogram Signal Worker Helper: Flavia Garcia RVT Ht: 5 ft 5 in Wt: 317lbs BSA: 2.41 BP: 189/80 mmHg Indications: ABN EKG,LBBB,OBESITY,FATIGUE,HTN,EDEMA TDS R/T PT BODY HABITUS Echo Enhancing Agent Indication: Endocardial border delineation Agent(s) / Amount(s) Used: Definity 2 cc 2D Dimensions IVSd 0.77 cm F: 0.6-1.0 LVEF (Visual) 58.40 % PWd 0.81 cm F: 0.6 - 1.0 LA Volume 70.40 mL LVDd 4.10 cm F: 3.9 - 5.3 LA Volume Index 29.21 mL/m2 (M/F) 16-34 LVDs 2.85 cm F: 2.2 - 3.5 M-Mode Dimensions LA Diam 4.36 cm (1.9-4.0) TAPSE 2.20 (<1.7) LV Diastology E Decel Time 187 (160-240 msec) E/A Ratio 0.7 Aortic Valve ALEX Index 1.00 cm2/m2 AoV Peak Moreno. 151.0 (50-130 cm/s) AO Peak GR. 9.10 mmHg AO Mean GR. 5.40 (<5 mmHg) AO VTI 35.3 (18-25 cm) ALEX (VTI) 2.46 (2.5-4.5 cm2) Mitral Valve MV E Max Moreno. 79.0 (40-130 cm/s) MV A Velocity 111.0 (40-130 cm/s) E/A Ratio 0.71 MV PHT 55.0 ms Pulmonary Valve PV Peak Velocity 61.0 (50-150 cm/s) Tricuspid Valve TR P. Velocity 279.00 cm/s RAP Estimate 10.00 mmHg RVSP 41.20 mmHg Left Ventricle The left ventricle is normal size. The left ventricular systolic function is low normal. There is increased LV wall thickness. The septum is asynchronous. Diastolic function is indeterminate. No left ventricle thrombus noted on this study. LVEF is 50%. Right Ventricle The right ventricle is normal size. The right ventricular systolic function is normal. Atria The left atrium is mildly dilated. The right atrium size is normal. There is no Doppler evidence of interatrial shunt. Aortic Valve The aortic valve opens well. There is no aortic valvular stenosis. No aortic regurgitation is present. Mitral Valve The mitral valve is normal in structure. No evidence of mitral valve stenosis. Mild mitral regurgitation. Tricuspid Valve The tricuspid valve leaflets are thin and pliable. Mild tricuspid regurgitation. RVSP is 20-25 mmHg. Pulmonic Valve The pulmonary valve is normal in structure. Trace pulmonic regurgitation. Great Vessels The aortic root is not well-visualized. IVC is normal in size and collapses >50% with inspiration. Pericardium There is no pericardial effusion. Other Information Study Quality: Fair Conclusion Low normal LV systolic function (LVEF 50%). Mild MR, mild TR. RVSP is 20-25 mmHg. Electronically signed by : Paige Rush MD 07/30/2023 22:38:54
--- NOTE | 2023-07-28 09:30 | CA_ITS ---
APPROVED REPORT Exam: Pharmacologic Technologist: Sangita Riuz, Ht: 5 ft 5 in Wt: 317 lbs BSA: 2.41 m2 HR: 57 bpm BP: 141/62 mmHg Rhythm: NSR Medical History Medications: Carvedilol,,,,, Norvasc,,,,, CeleBREX,,,,, Trazodone,,,,, Losartan-HCTZ,,,,, Potassium Chloride ER,,,,, Stress Test Details Test: LEXISCAN Reason for pharmacologic stress test: physical limitation. HR Resting HR: 58 bpm Max Heart Rate (APMHR): 162 bpm Max HR Achieved: 81 bpm Target HR (85% APMHR): 138 bpm % of APMHR: 50 Recovery HR: 60 bpm BP Resting BP: 141.0/62.0 mmHg Max BP: 141.0/62.0 mmHg Recovery BP: 111.0/46.0 mmHg ECG Resting ECG: NSR, RBBB Stress ECG: No significant ST changes Arrhythmia: None Clinical Exercise duration: 04:00 min Highest Stage Achieved: Stress ECG Conclusion Symptoms: SOA, head discomfort. Mild chest discomfort in late recovery. Arrhythmias/Ectopy: None ST-T Changes: No significant ST changes. Conclusion: Unremarkable Lexiscan stress. Myoview images reported separately. Test Summary REST . . . . . . . Resting REST 03:31 . . 58 . 141/ 62 . . Stage 1 01:00 . . 80 . . . . Stage 2 01:00 . . 73 . . . . Stage 3 01:00 . . 70 . 124/ 49 . . Stage 4 01:00 . . 65 . 122/ 47 . Stop exercise at 04:00 RECOVERY 01:00 . . 66 . . . . RECOVERY 02:00 . . 63 . . . . RECOVERY 03:00 . . 62 . 122/ 47 . . RECOVERY 04:00 . . 62 . 122/ 47 . . RECOVERY 05:00 . . 66 . 122/ 47 . . RECOVERY 06:00 . . 60 . 111/ 46 . . RECOVERY 06:02 . . 60 . 111/ 46 . . Electronically signed by : Paige Rush MD 08/02/2023 11:13:15
[2023-07-28] MEDS: ISOTOPE MYOVIEW (PER STUDY) 1 DOSE IV (09:39)
[2023-07-28] MEDS: SODIUM CHLORIDE 0.9% 10ML SYR (RAD ONLY) 10 ML IV ×2 (09:39→09:40)
[2023-07-28] MEDS: REGADENOSON 0.4MG/5ML SYRINGE 0.400000000000000022 MG IV (09:39)
[2023-07-28] MEDS: DEFINITY US ECHO CONTRAST 2ML INJ 2 MG IV (10:05)
== END 2023-07-28 23:59 ==
LOC: RAD 08:03
PROVIDERS: PCP Internal Medicine Adolescent Medicine; Visit Provider Internal Medicine
DX: R94.31 Abnormal electrocardiogram [ECG] [EKG] (principal); I44.7 Left bundle-branch block, unspecified; H53.8 Other visual disturbances; I10 Essential (primary) hypertension
CPT/HCPCS: 78452; 93017; 93018; 93306; A9502; J2785; Q9957

== ENCOUNTER 2023-08-04 14:54 | Outpatient (CLI) | payer BC, SELFPAY ==
[2023-08-04 15:33] LABS: Alanine Aminotransferase 25 U/L (12-78); Albumin Level 3.9 g/dl (3.5-5.0); Alkaline Phosphatase 102 U/L (38-126); Aspartate Amino Transferase 24 U/L (14-36); Bilirubin,Direct 0.1 mg/dl (0.0-0.4); Bilirubin,Indirect 0.2 mg/dL (0.0-0.9); Bilirubin,Total 0.3 mg/dl (0.2-1.3); Bilirubin,Unconjugated 0.2 mg/dL (0.0-1.1); Cholesterol 205 mg/dl (140-200); HDL Cholesterol 51 mg/dl (40-60); Total Protein,Serum 6.3 g/dl (6.3-8.2); Triglycerides 127 mg/dl (30-150); VLDL Cholesterol 25 mg/dL (0-40)
[2023-08-04 15:45] LABS: Direct LDL Cholesterol 105.08 mg/dL (100-129)
[2023-08-04 15:50] LABS: Free T4 (Free Thyroxine) 1.24 ng/dl (0.78-2.19)
[2023-08-04 15:59] LABS: Hemoglobin A1C 5.9 % (4.0-6.0)
== END 2023-08-04 23:59 ==
LOC: LAB 14:55
PROVIDERS: PCP Internal Medicine Adolescent Medicine; Visit Provider Internal Medicine
DX: I11.9 Hypertensive heart disease without heart failure (principal); I44.7 Left bundle-branch block, unspecified; R94.31 Abnormal electrocardiogram [ECG] [EKG]; H53.8 Other visual disturbances; Z87.891 Personal history of nicotine dependence
CPT/HCPCS: 36415; 80061; 80076; 83036; 84439; 84443

== ENCOUNTER 2023-08-12 12:06 | Outpatient (CLI) | payer BC, SELFPAY ==
--- NOTE | 2023-08-12 12:06 | CT_ITS ---
APPROVED REPORT Curer Acid Drum: CLINICAL INDICATION Chest Pain TECHNIQUE Image Acquisition: A 128 slice MDCT scanner ([employer]) was used for data acquisition. A noncontrast coronary calcium scan was performed. A CT attenuation threshold of 130 Hounsfield units (HU) was used for the detection of calcium in contiguous voxels of 1 sq mm in area to be counted as individual lesions. Bolus tracking in the ascending aorta with a threshold of 180 HU was performed. Immediately afterwards, ECG synchronized cardiac CT was then performed from the cardiac base to apex using retrospective gating with ECG tube current modulation. A total of 85 mL of Isovue 370 mg/mL contrast medium was administered at 5 mL/sec followed by a saline flush using a biphasic injection protocol. A tube voltage of 120 KVp was used. The patient received the following medications prior to the cardiac CT. 5 mg of intravenous metoprolol 0.8 mg of sublingual nitroglycerin The average heart rate at the time of acquisition was 56 bpm and regular. Image Reconstruction Transaxial images were reconstructed at 0.67 mm slide thickness. Data was reviewed interactively on an advanced workstation capable of 2 and 3-dimensional displays in all conventional reconstruction formats, including multiplanar reformations, maximum intensity projections, curved multiplanar reformations, and volume rendered reconstructions. When applicable, selected routine images describing the relevant coronary anatomy and pathology were saved and sent to PACS. Complications None Technical Quality Overall image quality was suboptimal due to significant motion. Coronary artery opacification was adequate. Total DLP (Dose-Length Product) is 1325.9 mGy-cm. The reported value represents the total of one or more individual components during the CT acquisition of this date and at this time, and as such, the same value may appear in more than one CT report depending on the interpreting/reporting physicians. COMPARISON None FINDINGS CT Coronary Calcium Scoring LMA (Left Main Artery) = 99 LAD (Left Anterior Descending) = 38 LCX (Left Coronary Circumflex) = 64 RCA (Right Coronary Artery) = 32 Total Calcium Score = 233 using the AJ-130 method. The observed calcium score of 233 is at 97th percentile for subjects of the same age, sex, and race/ethnicity. The interpretation of the calcium heart score is based on the following continuum*: 0 = no calcified plaque detected (risk of coronary artery disease is very low ??? less than 5%) 1-10 = calcium detected in extremely minimal levels (risk of coronary diseases is still low ??? less than 10%) 11-100 = mild levels of plaque detected with certainty (mild or minimal narrowing of heart arteries is likely) 101-400 = definite,at least moderate levels of plaque detected (relatively high risk of a heart attack within 3-5 years) >401-999 = extensive levels of plaque detected (high risk of heart attack, high levels of vascular disease are present, high likelihood of at least one significant coronary narrowing) *The calcium heart score quantifies the burden of coronary calcification/plaque in the coronary arteries. The calcium heart score is not able to evaluate the presence or burden of non-calcified (i.e. soft) plaque. There is also identifiable calcification in the mitral annulus. Coronary CT Angiography The coronary arterial system is right dominant. Quantitative Stenosis Grading: Left Main (LM): The left main originates normally from the left sinus of Valsalva. The LM bifurcates into the left anterior descending artery and left circumflex artery. There is calcified/noncalcified plaque in the distal LM, with up to 30% luminal stenosis. Left Anterior Descending (LAD) and Diagonal Branches: The LAD gives off 3 diagonal branch(es). There is calcified/noncalcified plaque in the proximal LAD, with presence of 50-70% luminal stenosis. There is no evidence of LAD-myocardial bridge. Left Circumflex (LCX) and Obtuse Marginals (OM): The LCX gives off 1 Obtuse Marginal (OM) branch. There is calcified plaque in the proximal LCx without significant luminal stenosis. There is another distal LCx plaque, but the degree of luminal stenosis is indeterminate due to significant motion in the distal LCX segment. Right Coronary Artery (RCA): The RCA originates normally from the right sinus of Valsalva. The RCA gives off a posterior descending artery (PDA) and posterolateral (PL) branches. There is mixed calcified/noncalcified plaque in the proximal RCA, with 25-49% luminal stenosis. Non-Coronary Cardiac Findings: Analysis of the left ventricular (LV) structure and function was performed after 3-D reconstruction of the LV from axial images, with user-corrected automatic contouring for assessment of LV volumes and user-defined reconstruction from oblique planes for measurement of 3-D cardiac structure and function. -The left ventricle global systolic function is normal. There is mild hypokinesis of the anterior septal LV wall. -There is no left atrial appendage filling defect. Two right pulmonary veins and two left pulmonary veins drain normally into the left atrium. -No pericardial thickening or calcification. -Central and branch pulmonary arteries in the [id number] are unremarkable. -Thoracic aorta within the visualized thoracic aortic-branches in the [id number] is unremarkable. Extracardiac Structures No significant extra-cardiac findings. Note, however, that this study is focused on the cardiac findings. IMPRESSION -Technically difficult and suboptimal study due to significant motion. -Presence of coronary calcification with an Agatston score = 233 using the AJ-130 method. -The observed calcium score of 233 is at 97th percentile for subjects of the same age, sex, and race/ethnicity. -Multivessel atherosclerotic disease with possible significant flow-limiting atherosclerosis of the LAD and LCX -CAD-RADS 3. Management recommendations per ACC/AHA guidelines*, as clinically appropriate. -The left ventricle global systolic function is normal. There is mild hypokinesis of the anterior septal LV wall. In the setting of presence of transient ischemic dilatation (TID) and fixed defects on nuclear stress testing, as well as CCTA evidence of hypokinesis of the anterior septal wall and presence of multivessel mixed plaque, further evaluation with invasive coronary angiography is suggested. *Recommendations: CAD RADS 0: Reassurance. Consider non-atherosclerotic causes of chest pain. CAD RADS 1: Consider non-atherosclerotic causes of chest pain. Consider preventive therapy and risk factor modification. CAD RADS 2: Consider non-atherosclerotic causes of chest pain. Consider preventive therapy and risk factor modification, particularly for patients with nonobstructive plaque in multiple segments. CAD RADS 3: Consider further functional testing. Consider symptom-guided anti-ischemic and preventive pharmacotherapy as well as risk factor modification per published guideline statements. CAD RADS 4A: Consider further functional testing or invasive coronary angiography with revascularization per published guideline statements. Consider symptom-guided anti-ischemic and preventive pharmacotherapy as well as risk factor modification per published guideline statements. CAD RADS 4B: Invasive coronary angiography recommended with revascularization per published guideline statements. Consider symptom-guided anti-ischemic and preventive pharmacotherapy as well as risk factor modification per published guideline statements. CAD RADS 5: Consider invasive angiography and/or viability assessment with revascularization per published guideline statements. Consider symptom-guided anti-ischemic and preventive pharmacotherapy as well as risk factor modification per published guideline statements. CRITICAL RESULT None COMMUNICATION Per this written report The coronary and cardiac findings of this CCTA were reviewed, reported, and signed by Vernon Rush MD (Visiting Professor) Conclusion Electronically signed by : Paige Ruhs MD 08/15/2023 13:38:30
[2023-08-12 12:41] VITALS: BMI 51.5
[2023-08-12 13:01] LABS: Chloride 100 mmol/L (98-107); Sodium 137 mmol/L (136-145)
[2023-08-12 13:02] LABS: Potassium 3.5 mmoL/L (3.5-5.1)
[2023-08-12 13:04] LABS: Blood Urea Nitrogen 21 mg/dl (7-17); Creatinine Clearance Estimated 79 mL/min (50-200); Estimated Glomerular Filt Rate 86 ml/min (>60); GFR (African American) 104 ML/MIN (>60)
[2023-08-12 13:05] LABS: Anion Gap 4.5 mEq/L (5-15); Calcium 9.4 mg/dl (8.4-10.2); Carbon Dioxide 36 mmol/L (22.0-30.0); Glucose 98 mg/dl (74-100)
[2023-08-12 13:13] VITALS: BP 151/102; PULSE 68; RESP 16; O2SAT 96
[2023-08-12] MEDS: NITROGLYCERIN 0.4MG SL TABLET SL (13:13)
[2023-08-12 13:16] VITALS: BP 168/67; PULSE 65; RESP 16; O2SAT 96
[2023-08-12 13:19] VITALS: BP 140/76; PULSE 66; RESP 16; O2SAT 96
[2023-08-12] MEDS: METOPROLOL TARTRATE 5MG/5ML VIAL 5 MG IV (13:19)
[2023-08-12] MEDS: IOPAMIDOL-370 (76%);100ML BOTTLE 85 ML IV (13:27)
[2023-08-12] MEDS: 0.9 % SODIUM CHLORIDE 50 ML VIAL IV (13:27)
[2023-08-12 13:30] VITALS: BP 145/71; PULSE 68; RESP 16; O2SAT 96
[2023-08-12 13:40] VITALS: BP 128/76; PULSE 56; RESP 16; O2SAT 98
== END 2023-08-12 13:49 | disposition home or self-care (01) ==
PROVIDERS: PCP Internal Medicine Adolescent Medicine; Visit Provider Internal Medicine
DX: I44.7 Left bundle-branch block, unspecified (principal); R94.39 Abnormal result of other cardiovascular function study; R94.31 Abnormal electrocardiogram [ECG] [EKG]; R53.83 Other fatigue; R06.83 Snoring; H53.8 Other visual disturbances; I10 Essential (primary) hypertension
CPT/HCPCS: 75571; 75574; 80048; Q9967

== ENCOUNTER 2023-10-04 08:23 | Day surgery (SDC) | payer BC, SELFPAY ==
[2023-10-04] VITALS (12 sets, daily range): BP systolic 159–195; BP diastolic 67–97; PULSE 54–100; RESP 17–18; TEMP 36.5–36.7; O2SAT 92–99; BMI 54.6
--- NOTE | 2023-10-04 07:17 | IR_ITS ---
APPROVED REPORT Patient Location: Outpatient Compliance Examiner: CHEYENNE Copeland RT (R) PROCEDURES Selective coronary angiogram Drug-eluting stent deployment to the circumflex artery INDICATION Coronary artery disease, Angina pectoris, Abnormal Myoview, Abnormal CCTA, Informed consent was obtained prior to the procedure. COMPLICATIONS NONE Estimated Blood Loss: LESS THAN 10 ML TECHNIQUE One percent lidocaine used to anesthetize the right anterior aspect of the wrist. The right radial artery was accessed via the Seldinger technique. A 6 Russian sheath was placed in the right radial artery. 2.5 mg of Verapamil, 800 mcg of nitroglycerin, 1mg Lidocaine and 5000 U Heparin were given through the arterial sheath. The papa catheter and 6 Russian JL 3 guide catheter were also used to perform selective coronary angiogram. At the end the diagnostic angiogram therapeutic heparin was administered giving a therapeutic ACT and the guide catheter was placed in the left main artery followed by Choice PT extra-support wire down the first obtuse marginal artery. A 3 mm x 15 mm Hindman frontier stent was deployed at 16 james reducing the severe stenosis to less than 10%. BETITO-3 flow was present before and after the procedure. After achieving excellent angiograph results apparatus was removed the sheath was removed and hemostasis was achieved using TR banding patient was transferred to the postop putting in stable condition ANGIOGRAPHIC RESULTS The left main artery Normal The left anterior descending artery Has proximal and mid vessel diffuse 20 and 30% stenoses The circumflex artery Is codominant and has a 70 to 80% stenosis in a large first obtuse marginal artery The right coronary artery This codominant and has proximal 20% stenosis with a long diffuse smooth 30 to 40% mid vessel stenosis The DURBIN ventriculogram reveals Was not performed The left ventricular end-diastolic pressure Was not measured IMPRESSION Severe disease in a large first obtuse marginal artery Successful stenting of the first obtuse marginal artery severe disease reduced to less than 10% with 1 drug-eluting stent PLAN 1. Effient 10 mg daily plus aspirin 81 mg daily 2. LDL less than 55 to be achieved with high intensity statin 3. Avoidance of tobacco products 4. Cardiac rehabilitation 5. Risk factor modification 6. Weight loss exercise Electronically signed by : Zay Go MD 10/04/2023 13:21:11
[2023-10-04 08:52] LABS: Basophils # 0.1 K/mm3 (0-0.2); Basophils % 0.9 % (0.1-2.0); Eosinophils # 0.1 K/mm3 (0.0-0.4); Hematocrit 44.6 % (37.0-47.0); Hemoglobin 14.3 g/dL (12.2-16.2); Lymphocytes # 1.3 K/mm3 (0.7-4.5); Lymphocytes % 19.8 % (10-50); Mean Corpuscular Hemoglobin 27.3 pg (27.0-31.2); Mean Corpuscular Volume 85.1 fl (81-99); Mean Platelet Volume 7.6 fl (7.4-10.4); Monocytes # 0.3 K/mm3 (0.1-1.0); Monocytes % 5.3 % (1.7-9.3); Neutrophils # 4.6 K/mm3 (1.8-7.8); Neutrophils % 72.1 % (37.0-80.0); Platelet Count 234 K/mm3 (142-424); Red Blood Count 5.24 M/mm3 (4.20-5.40); Red Cell Distribution Width 15.1 % (11.5-17.5); White Blood Count 6.4 K/mm3 (4.8-10.8)
[2023-10-04 09:00] LABS: Anion Gap 12.9 mEq/L (5-15); Blood Urea Nitrogen 17 mg/dl (7-17); Calcium 9.5 mg/dl (8.4-10.2); Carbon Dioxide 32 mmol/L (22.0-30.0); Chloride 101 mmol/L (98-107); Creatinine Clearance Estimated 79 mL/min (50-200); Estimated Glomerular Filt Rate 86 ml/min (>60); GFR (African American) 104 ML/MIN (>60); Glucose 113 mg/dl (74-100); Potassium 3.9 mmoL/L (3.5-5.1); Sodium 142 mmol/L (136-145)
[2023-10-04] MEDS: HEPARIN 1,000 UNITS/ML 10ML VIAL (CATH LAB) 10000 UNIT IV (12:58)
[2023-10-04] MEDS: HEPARIN 1,000 UNITS/500ML NS (CATH LAB) 3000 UNIT IV (12:58)
[2023-10-04] MEDS: 0.9 % SODIUM CHLORIDE 500 ML 25 ML IV (12:58)
[2023-10-04] MEDS: VERAPAMIL 2.5MG/ML 2ML VIAL 2.5 MG IV (12:59)
[2023-10-04] MEDS: NITROGLYCERIN 800MCG/8ML SYR (CATH LAB) 800 MCG IA (12:59)
[2023-10-04] MEDS: diphenhydrAMINE 50MG/ML VIAL 50 MG IV (12:59)
[2023-10-04] MEDS: LIDOCAINE 1% 10ML MDV 20 ML IJ (12:59)
[2023-10-04] MEDS: FENTANYL 100MCG/2ML VIAL 50 MCG IV (13:07)
[2023-10-04] MEDS: MIDAZOLAM HCL 1MG/1ML 5ML VIAL 1 MG IV (13:07)
--- NOTE | 2023-10-04 13:57 | SUR.PHASEII ---
Report given to Tea Joya in post op
--- NOTE | 2023-10-04 16:15 | PC.NURSE ---
RADIAL BAND REMOVED R WRIST. BLUE BRUISE NOTED AT SITE. NO BLEEDING NOTED. 2 TELFA PADS FOLDED ONCE AND PLACED OVER SITE WITH TEGADERM COVERING. NO BLEEDING NOTED WHILE ASSISTED PT GETTING DRESSED AND TAKEN OUT VIA W/C. PT PLEASANT AND COOPERATIVE.
[2023-10-04] MEDS: IOPAMIDOL-370 (76%);100ML BOTTLE 100 ML IV (17:20)
[2023-10-04 17:29] LABS: CATHL Activated Clotting Time 308 SEC (74-125)
== END 2023-10-04 16:15 | disposition home or self-care (01) ==
PROVIDERS: PCP Internal Medicine Adolescent Medicine; Visit Provider Internal Medicine
DX: I25.118 Atherosclerotic heart disease of native coronary artery with other forms of angina pectoris (principal); R93.1 Abnormal findings on diagnostic imaging of heart and coronary circulation; Z87.891 Personal history of nicotine dependence; Z79.899 Other long term (current) drug therapy; I10 Essential (primary) hypertension; I44.7 Left bundle-branch block, unspecified
CPT/HCPCS: 80048; 85025; 85347; 92928; 93454; 99152; C1725; C1760; C1769; C1874; C9600; J1644; Q9967

== ENCOUNTER 2023-10-07 08:09 | Outpatient (CLI) | payer BC, SELFPAY ==
[2023-10-07 08:24] LABS: Basophils # 0.1 K/mm3 (0-0.2); Eosinophils # 0.2 K/mm3 (0.0-0.4); Eosinophils % 2.6 % (0.1-12.0); Hematocrit 41.6 % (37.0-47.0); Hemoglobin 14.1 g/dL (12.2-16.2); Lymphocytes # 1.2 K/mm3 (0.7-4.5); Lymphocytes % 19.3 % (10-50); Mean Corpuscular HGB Conc 33.8 g/dL (31.8-35.4); Mean Corpuscular Volume 82.6 fl (81-99); Mean Platelet Volume 8.1 fl (7.4-10.4); Monocytes # 0.3 K/mm3 (0.1-1.0); Monocytes % 5.4 % (1.7-9.3); Neutrophils # 4.5 K/mm3 (1.8-7.8); Neutrophils % 71.7 % (37.0-80.0); Platelet Count 225 K/mm3 (142-424); Red Blood Count 5.04 M/mm3 (4.20-5.40); Red Cell Distribution Width 15.4 % (11.5-17.5); White Blood Count 6.3 K/mm3 (4.8-10.8)
[2023-10-07 09:43] LABS: Anion Gap 13.3 mEq/L (5-15); Blood Urea Nitrogen 21 mg/dl (7-17); Calcium 9.7 mg/dl (8.4-10.2); Carbon Dioxide 29 mmol/L (22.0-30.0); Chloride 102 mmol/L (98-107); Estimated Glomerular Filt Rate 74 ml/min (>60); GFR (African American) 89 ML/MIN (>60); Glucose 105 mg/dl (74-100); Potassium 4.3 mmoL/L (3.5-5.1); Sodium 140 mmol/L (136-145)
== END 2023-10-07 23:59 | disposition home or self-care (01) ==
LOC: LAB 08:10
PROVIDERS: PCP Internal Medicine Adolescent Medicine; Visit Provider Internal Medicine
DX: I25.10 Atherosclerotic heart disease of native coronary artery without angina pectoris (principal); Z95.5 Presence of coronary angioplasty implant and graft; Z87.891 Personal history of nicotine dependence
CPT/HCPCS: 36415; 80048; 85025

== ENCOUNTER 2023-10-24 13:39 | Outpatient (CLI) | payer BC, SELFPAY ==
--- OUTSIDE RECORDS SUMMARY | 2023-10-24 13:42 | XMS_ITS | Patient Health Record ---
Author Name Unknown Organization [facility] Address [address] [place] [address] Care Team Providers Care Assistant City Attorney Name Role Phone Delio Arcos Primary Care Provider ALLERGIES Allergen (clinical drug ingredient) Drug/Non Drug Allergy documented on EMR Reaction Allergy Type Onset Date Status lisinopril Unknown Drug Allergy Active RESULTS Component Value Reference Range Notes M-Basic Metabolic Panel Reviewed date:08/12/2023 09:11:36 PM Interpretation: Performing Lab: Notes/Report: NA 137 136-145 mmol/L K 3.5 3.5-5.1 mmoL/L CL 100 98-107 mmol/L CO2 36 22.0-30.0 mmol/L GAP 4.5 5-15 mEq/L BUN 21 7-17 mg/dl CREATT 0.70 0.52-1.04 mg/dl CRCLE 79 50-200 mL/min GFRAA 104 >60 ML/MIN EGFR 86 >60 ml/min GLU 98 74-100 mg/dl MEDICATIONS Medication SIG (Take, Route, Frequency, Duration) Notes Start Date End Date Status Meclizine Hydrochloride 25 mg 1 tab(s) orally 3 times a day PRN for 7 days 09/24/2022 Active Potassium Chloride (Eqv-K-Tab) 10 mEq Take 1 tablet by mouth once daily for 90 Active Metoprolol Succinate ER 50 mg Take 1 tablet by mouth once daily for 90 Active famotidine 20mg 2 tab(s) orally 2 ti mes a day prn for 30 days Active Ondansetron Hydrochloride 4 mg 1 tab(s) orally every 8 hours for 5 days 09/23/2022 Active Trulicity Pen 1.5 mg/0.5 mL as directed subcutaneously once a week for 30 days 08/18/2022 Active hydrochlorothiazide-losart an 25 mg-100 mg 1 tab(s) orally once a day for 90 days Active celecoxib 200 mg 1 cap(s) orally 2 ti mes a day for 30 days Active TraZODone Hydrochloride 50 mg 1/2 tab-1 tablet orally every night for 90 days Active IMMUNIZATIONS Vaccine Route Administration Date Status Comme nts Adacel (Tdap) Unknown 05/29/2013 Administered Flublok IM Intramuscular 02/16/2022 Administered SOCIAL HISTORY Sex Assigned At : Social History Observation Description Sex Assigned At Unknown PROBLEMS Problem Type ICD Code Onset Dates Problem Status W/U Status Risk SNOMED Code Notes Problem Type 2 diabetes mellitus with other specified complication (E11.69) Active confirmed 31347492 Problem Psychophysiologic insomnia (F51.04) Active confirmed 978562840 Problem GERD without esophagitis (K21.9) Active confirmed 845469894 Problem Hypertension, essential (I10) Active confirmed 00305675 Problem Obesity, morbid, BMI 40.0-49.9 (E66.01) Active confirmed 938746522 Problem BMI 40.0-44.9, adult (Z68.41) Active confirmed 984968237 Problem Obesity, unspecified (E66.9) Active confirmed 198150100 Problem Other and unspecifie d hyperlipidemia (E78.5) Active confirmed 64876794 Problem Sacroiliitis (M46.1) Active confirmed 5 5277335 Problem Primary hypertension (I10) Active confirmed 47693139 Problem Body mass index [BMI ] 45.0-49.9, adult (Z68.42) Active confirmed 804067241 Encounters Encounter Location Date Provider Diagnosis [facility] [address] [place] [address] 09/15/2023 Delio Arcos PLAN OF TREATMENT Pending Test Test Name Order Date Ultrasound : Kidneys, Bilateral 04/15/20 17 X ray : Spines, Lumbosacral 10/26/2016 Physical Therapy 10/28/2016 C-CMP 04/15/2017 C-LIPID PANEL 04/15/2017 M-Vitamin B12 03/31/2021 C-COVID-19 PCR 11/22/2019 Future Test Test Name Order Date M-Comprehensive Metabolic Panel 01/26/20 M-Lipid Panel 01/25/2019 Insurance Providers Payer Name Payer Address Payer Phone Subscriber Number Group Number Insured Name Patient Relationship to Insured Coverage Start Date Coverage End Date [facility] [address] [place] [address] [id number] Neeru Pérez Self - patient is the insured MEDICATIONS ADMINISTERED Medication Instructions Date of Administration Dosage Notes Cyanocobalamin/B-12 Pt's Own Medication 06/05/2013 Cyanocobalamin/B-12 Pt's Own Medication 06/12/2013 Cyanocobalamin/B-12 Pt's Own Medication 06/20/2013 Cyanocobalamin/B-12 Pt's Own Medication 06/26/2013 Cyanocobalamin/B-12 Pt's Own Medication 07/04/2013 Cyanocobalamin/B-12 Pt's Own Medication 07/10/2013 Cyanocobalamin/B-12 Pt's Own Medication 07/17/2013 Cyanocobalamin/B-12 Pt's Own Medication 07/24/2013 Cyanocobalamin/B-12 Pt's Own Medication 08/22/2013 Cyanocobalamin/B-12 Pt's Own Medication 09/13/2013 Cyanocobalamin/B-12 Pt's Own Medication 10/12/2013 1cc cc Cyanocobalamin/B-12 Pt's Own Medication 11/13/2013 Cyanocobalamin/B-12 Pt's Own Medication 12/07/2013 Kenalog 40mg 04/15/2017 40 mg Kenalog 01/21/2014 1 Kenalog 01/29/2015 1 mL MEDICAL (GENERAL) HISTORY Medical History History ICD Code uterine fibroid-hysterectomy HTN Hyperlipidemia Morbid Obesity Seasonal allergies headache disorder-negative MRI May 17 018, normal sedimentation rate Normal mammogrm 06/04 and 07/2022 Normal DEXA 05/2019 negative cologuard testing March 2020 Surgical History Surgery Date(Month/Year) partial hysterectomy repair fallopian tube cholecystectomy Hospitalization History Reason Date(Month/Year) ulcers
[2023-10-24 14:32] LABS: Basophils % 0.9 % (0.1-2.0); Eosinophils # 0.2 K/mm3 (0.0-0.4); Eosinophils % 3.4 % (0.1-12.0); Hematocrit 41.1 % (37.0-47.0); Hemoglobin 13.7 g/dL (12.2-16.2); Lymphocytes # 1.3 K/mm3 (0.7-4.5); Lymphocytes % 24.9 % (10-50); Mean Corpuscular HGB Conc 33.3 g/dL (31.8-35.4); Mean Corpuscular Hemoglobin 27.5 pg (27.0-31.2); Mean Corpuscular Volume 82.5 fl (81-99); Mean Platelet Volume 7.8 fl (7.4-10.4); Monocytes # 0.3 K/mm3 (0.1-1.0); Monocytes % 6.7 % (1.7-9.3); Neutrophils # 3.3 K/mm3 (1.8-7.8); Neutrophils % 64.1 % (37.0-80.0); Platelet Count 230 K/mm3 (142-424); Red Blood Count 4.98 M/mm3 (4.20-5.40); Red Cell Distribution Width 15.5 % (11.5-17.5); White Blood Count 5.1 K/mm3 (4.8-10.8)
[2023-10-24 15:09] LABS: Alanine Aminotransferase 43 U/L (12-78); Alkaline Phosphatase 95 U/L (38-126); Anion Gap 9.5 mEq/L (5-15); Aspartate Amino Transferase 38 U/L (14-36); Bilirubin,Indirect 0.8 mg/dL (0.0-0.9); Bilirubin,Total 0.8 mg/dl (0.2-1.3); Bilirubin,Unconjugated 0.9 mg/dL (0.0-1.1); Blood Urea Nitrogen 18 mg/dl (7-17); Calcium 9.6 mg/dl (8.4-10.2); Carbon Dioxide 33 mmol/L (22.0-30.0); Chloride 100 mmol/L (98-107); Chol/HDL Ratio 2.9 (1-3.5); Cholesterol 140 mg/dl (140-200); Estimated Glomerular Filt Rate 86 ml/min (>60); GFR (African American) 104 ML/MIN (>60); Glucose 116 mg/dl (74-100); HDL Cholesterol 48 mg/dl (40-60); Potassium 3.5 mmoL/L (3.5-5.1); Sodium 139 mmol/L (136-145); Total Protein,Serum 6.4 g/dl (6.3-8.2); Triglycerides 118 mg/dl (30-150); VLDL Cholesterol 24 mg/dL (0-40)
[2023-10-24 15:20] LABS: Direct LDL Cholesterol 72.38 mg/dL (100-129)
[2023-10-24 15:26] LABS: Free T4 (Free Thyroxine) 1.34 ng/dl (0.78-2.19)
[2023-10-24 15:40] LABS: Thyroid Stimulating Hormone 1.44 uIU/mL (0.465-4.68)
== END 2023-10-24 23:59 | disposition home or self-care (01) ==
LOC: LAB 13:40
PROVIDERS: PCP Internal Medicine Adolescent Medicine; Visit Provider Internal Medicine
DX: R06.09 Other forms of dyspnea (principal); I25.118 Atherosclerotic heart disease of native coronary artery with other forms of angina pectoris; R93.1 Abnormal findings on diagnostic imaging of heart and coronary circulation; R53.83 Other fatigue; R06.83 Snoring; I44.7 Left bundle-branch block, unspecified; R94.31 Abnormal electrocardiogram [ECG] [EKG]; I11.9 Hypertensive heart disease without heart failure; Z87.891 Personal history of nicotine dependence; E11.9 Type 2 diabetes mellitus without complications; Z79.85 Long-term (current) use of injectable non-insulin antidiabetic drugs; R06.00 Dyspnea, unspecified; K21.9 Gastro-esophageal reflux disease without esophagitis
CPT/HCPCS: 36415; 80048; 80061; 80076; 84439; 84443; 85025

== ENCOUNTER 2023-11-02 09:14 | Outpatient (CLI) | payer BC, SELFPAY ==
--- NOTE | 2023-11-02 09:15 | CA_ITS ---
APPROVED REPORT EXAM: Comprehensive 2D, Doppler, and color-flow Echocardiogram Loss Control Manager: EVELYN Bennett, RVS Ht: 5 ft 5 in Wt: 317lbs BSA: 2.41 BP: 142/77 mmHg Indications: CADD,CM,LBBB, Ex-smoker,HTN,SOA,Fatigue Echo Enhancing Agent Comments: TDS: due to extreme body habitus. 2D Dimensions LA Volume 100.00 mL LA Volume Index 41.931181 mL/m2 (M/F) 16-34 EF AP4 51.40 % GL Strain -23.2 % M-Mode Dimensions RVDd 2.12 cm (0.9-2.6) LVDd 5.80 cm (3.5-5.7) LVDs 4.00 cm (3.5-5.7) IVSd 1.38 cm (0.6-1.1) PWd 0.74 cm (0.6-1.1) EF (Teich) 58.00% FS 31.00% EDV (Teich) 166.60 mL ESV (Teich) 70.00 mL Other Information Study Quality: Technically Difficult Conclusion This is a limited TTE to evaluate for LV systolic function in the setting of recent LHC. Limited windows were obtained. Technically difficult study. The left ventricle is normal in size. There is increased LV wall thickness. There is normal global LV systolic function. No regional wall motion abnormalities are noted. LVEF is 55-60%. Compared to prior TTE from 07/28/2023, the LVEF is now improved. Electronically signed by : Paige Rush MD 11/03/2023 10:48:33
== END 2023-11-02 23:59 | disposition home or self-care (01) ==
LOC: RT 09:15
PROVIDERS: PCP Internal Medicine Adolescent Medicine; Visit Provider Internal Medicine
DX: R06.09 Other forms of dyspnea (principal); R93.1 Abnormal findings on diagnostic imaging of heart and coronary circulation; I25.118 Atherosclerotic heart disease of native coronary artery with other forms of angina pectoris; R53.83 Other fatigue; I44.7 Left bundle-branch block, unspecified; R94.31 Abnormal electrocardiogram [ECG] [EKG]; I10 Essential (primary) hypertension; Z87.891 Personal history of nicotine dependence
CPT/HCPCS: 93308

== ENCOUNTER 2024-04-20 16:58 | Outpatient (CLI) | payer BC, SELFPAY ==
--- NOTE | 2024-04-20 17:00 | MM_ITS ---
PROCEDURE INFORMATION: Exam: MG Bilateral Screening 3D Mammography Exam date and time: 04/20/2024 4:47 PM Age: 59 years old Clinical indication: Screening examination TECHNIQUE: Imaging protocol: Bilateral Screening tomosynthesis and 2D mammography including computer-aided detection (CAD) when performed. COMPARISON: 1. MG MM DIG SCREENING MAMM BI W/CAD 07/23/2022 7:54 AM 2. MG MM DIG SCREENING MAMM BI W/CAD 06/24/2020 4:55 PM FINDINGS: MAMMOGRAPHY: Breast composition: The breasts are almost entirely fatty. Mass: None. Architectural distortion: None. Calcifications: No suspicious calcifications. Asymmetric density: None. Skin thickening: None. Axillary adenopathy: None. IMPRESSION: No mammographic evidence of malignancy. Annual screening is recommended unless otherwise clinically indicated. ASSESSMENT: BI-RADS Category 1: Negative.
== END 2024-04-20 23:59 | disposition home or self-care (01) ==
LOC: RAD 16:59
PROVIDERS: PCP Internal Medicine Adolescent Medicine; Visit Provider Internal Medicine Adolescent Medicine
DX: Z12.31 Encounter for screening mammogram for malignant neoplasm of breast (principal)
CPT/HCPCS: 77063; 77067

== ENCOUNTER 2024-05-30 15:25 | Outpatient (CLI) | payer BC, SELFPAY ==
[2024-05-30 15:54] LABS: Basophils % 0.4 % (0.1-2.0); Eosinophils # 0.1 K/mm3 (0.0-0.4); Eosinophils % 1.9 % (0.1-12.0); Hematocrit 40.9 % (37.0-47.0); Hemoglobin 13.4 g/dL (12.2-16.2); Lymphocytes # 1.8 K/mm3 (0.7-4.5); Mean Corpuscular HGB Conc 32.8 g/dL (31.8-35.4); Mean Corpuscular Hemoglobin 28.2 pg (27.0-31.2); Mean Corpuscular Volume 86.1 fl (81-99); Mean Platelet Volume 9.9 fl (7.4-10.4); Monocytes # 0.6 K/mm3 (0.1-1.0); Monocytes % 8.5 % (1.7-9.3); Neutrophils # 4.2 K/mm3 (1.8-7.8); Neutrophils % 61.9 % (37.0-80.0); Platelet Count 241 K/mm3 (142-424); Red Blood Count 4.75 M/mm3 (4.20-5.40); Red Cell Distribution Width 13.7 % (11.5-17.5); White Blood Count 6.7 K/mm3 (4.8-10.8)
[2024-05-30 16:35] LABS: Alanine Aminotransferase 33 U/L (12-78); Albumin Level 4.1 g/dl (3.5-5.0); Alkaline Phosphatase 107 U/L (38-126); Aspartate Amino Transferase 31 U/L (14-36); Bilirubin,Direct 0.1 mg/dl (0.0-0.4); Bilirubin,Indirect 0.3 mg/dL (0.0-0.9); Bilirubin,Total 0.4 mg/dl (0.2-1.3); Bilirubin,Unconjugated 0.3 mg/dL (0.0-1.1); Blood Urea Nitrogen 21 mg/dl (7-17); Calcium 9.7 mg/dl (8.4-10.2); Carbon Dioxide 33 mmol/L (22.0-30.0); Chloride 98 mmol/L (98-107); Chol/HDL Ratio 2.6 (1-3.5); Cholesterol 118 mg/dl (140-200); Estimated Glomerular Filt Rate 73 ml/min (>60); GFR (African American) 89 ML/MIN (>60); Glucose 108 mg/dl (74-100); HDL Cholesterol 45 mg/dl (40-60); Sodium 138 mmol/L (136-145); Total Protein,Serum 6.2 g/dl (6.3-8.2); Triglycerides 84 mg/dl (30-150); VLDL Cholesterol 17 mg/dL (0-40)
[2024-05-30 16:52] LABS: Free T4 (Free Thyroxine) 1.26 ng/dl (0.78-2.19)
[2024-05-30 17:06] LABS: Thyroid Stimulating Hormone 1.48 uIU/mL (0.465-4.68)
[2024-05-30 17:19] LABS: Anion Gap 10.9 mEq/L (5-15); Potassium 3.9 mmoL/L (3.5-5.1)
== END 2024-05-30 23:59 | disposition home or self-care (01) ==
LOC: LAB 15:25
PROVIDERS: PCP Internal Medicine Adolescent Medicine; Visit Provider Internal Medicine
DX: I25.118 Atherosclerotic heart disease of native coronary artery with other forms of angina pectoris (principal); I44.7 Left bundle-branch block, unspecified; R94.31 Abnormal electrocardiogram [ECG] [EKG]; I10 Essential (primary) hypertension; R06.00 Dyspnea, unspecified; I11.9 Hypertensive heart disease without heart failure
CPT/HCPCS: 36415; 80048; 80061; 80076; 84439; 84443; 85025

== ENCOUNTER 2025-03-26 14:40 | Outpatient (CLI) | payer BC, SELFPAY | END 2025-03-26 23:59 | disposition home or self-care (01) | LOC: RT 14:40 | PROVIDERS: PCP Internal Medicine Adolescent Medicine; Visit Provider Internal Medicine | DX: I49.1 Atrial premature depolarization (principal); I47.19 Other supraventricular tachycardia; I49.3 Ventricular premature depolarization; I47.29 Other ventricular tachycardia; I49.8 Other specified cardiac arrhythmias; I44.7 Left bundle-branch block, unspecified; I25.118 Atherosclerotic heart disease of native coronary artery with other forms of angina pectoris; R94.31 Abnormal electrocardiogram [ECG] [EKG]; R00.8 Other abnormalities of heart beat | CPT/HCPCS: 93270 ==

== ENCOUNTER 2025-04-09 09:13 | Outpatient (CLI) | payer BC, SELFPAY ==
--- NOTE | 2025-04-09 09:16 | US_ITS ---
FINAL REPORT TECHNIQUE: Sonographic images of the abdomen were obtained in all four quadrants. CLINICAL HISTORY: GENERALIZED ABDOMEN PAIN, FATTY LIVER FINDINGS: LIVER: Homogeneous. No focal hepatic lesion or intrahepatic biliary dilatation. The portal vein is patent with normal direction of flow. GALLBLADDER: Prior cholecystectomy. The common duct measures 5 mm. This is within normal limits for age. PANCREAS: Unremarkable. RIGHT KIDNEY: 9.8 cm. No hydronephrosis, mass or stone. LEFT KIDNEY: 11.4 cm. No hydronephrosis, mass or stone. SPLEEN: 11.1 cm. No focal splenic lesion. AORTA/IVC: No abdominal aortic aneurysm. Visualized IVC within normal limits. OTHER: No ascites. IMPRESSION: Unremarkable ultrasound of the abdomen. Reviewed, Interpreted and Dictated by Isamar Antoine MD Transcribed by Anila Nelson Authenticated and [facility]
--- OUTSIDE RECORDS SUMMARY | 2025-04-09 09:18 | XMS_ITS ---
Author Organization Unknown ENCOUNTERS Encounter Performer Location Date Diagnosis Diagnosis Status Emergency Raphael Winston [address] [place] [address] [phone] TINO Pre Admit [address] [place] [address] [phone] Emergency Neeru Townsend [address] [place] [address] [phone] TINO Emergency [address] [place] [address] [phone] TINO *Note: Encounters from your own facility or health system may be excluded. Allergies, Adverse Reactions, Alerts Allergen Type Severity Identification Date Medications Name Date Quantity Days Supplied GPI Number
== END 2025-04-09 23:59 | disposition home or self-care (01) ==
LOC: RAD 09:13
PROVIDERS: PCP Internal Medicine Adolescent Medicine; Visit Provider Internal Medicine Adolescent Medicine
DX: K76.0 Fatty (change of) liver, not elsewhere classified (principal); R10.84 Generalized abdominal pain
CPT/HCPCS: 76700

== ENCOUNTER 2025-04-22 06:59 | Outpatient (CLI) | payer BC, SELFPAY ==
--- OUTSIDE RECORDS SUMMARY | 2024-08-02 04:30 | XMS_ITS ---
Author Organization [facility] Address [address] [place] [address] Care Team Providers Care Coordinate Measuring Equipment Operator Name Role Phone Delio Arcos Primary Care Provider REASON FOR VISIT 4 month f/u Encounters Encounter Location Date Provider Diagnosis [facility] [address] [address] 08/02/2024 Delio Arcos Plan Of Treatment Next Appt Details Provider Name:Delio Arcos, 06/13/2025 09:15:00 AM, [address] [place] [address], [address], Progress Notes * Neeru LONGODOB:1965 (60 yo F)Acc No.[id number]:08/02/2024 Progress Notes Patient: Neeru DOUGLASS Provider: Chalo Arcos MD :1965 A ge:59 Y S ex:Female Date:08/02/2024 Address:[address] [id number] Subjective: * Chief Complaints: * 1 . 4 month f/u. * Medical History: Objective: * Vitals: Assessment: Plan: * Treatment: * * Electronic signature of Carlitos Arcos MD FAAP on 04/22/2025 at 07:02 AM EST Sign off status: Pending * Provider: Chalo Arcos MD Date: 0 08/02/2024 Generated for Jessica price/Carri/Seemaitting on: 1 06/23/2024 07:02 AM EST
--- OUTSIDE RECORDS SUMMARY | 2024-08-18 16:30 | XMS_ITS ---
Author Organization [facility] Address [address] [place] [address] Care Team Providers Care Responder Name Role Phone Delio Arcos Primary Care Provider Migration, Provider Unavailable Unavailable Allergies Allergen (clinical drug ingredient) Drug/Non Drug Allergy documented on EMR Reaction Allergy Type Onset Date Status lisinopril Lisinopril Unknown Drug Allergy Activ e REASON FOR VISIT [facility] To [facility] Conversion Encounter Medications Medication SIG (Take, Route, Frequency, Duration) Notes Start Date End Date Status traZODone HCl 50 MG 1/2 tab-1 tablet orally every night; Duration: 90 days Active POTASSIUM CHLORIDE (EQV-K-TAB) 10 MEQ TAKE 1 TABLET BY MOUTH ONCE DAILY; Duration: 90 *Please review for potential replacement for e-prescription and drug interaction check* Active Celecoxib 200 MG 1 cap(s) orally 2 times a day; Duration: 30 days Active OZEMPIC 8 MG/3 ML (2 MG DOSE) 2 MG SUBCUTANEOUSLY ONCE A WEEK; Duration: 84 DAYS *Please review for potential replacement for e-prescription and drug interaction check* 04/05/2024 Active Famotidine 20 MG 2 tab(s) orally 2 times a day prn; Duration: 30 days Active Atorvastatin Calcium 80 MG 1 tab(s) orally once a day Active Aspirin 81 MG 1 tab(s) orally once a day Active Effient 10 MG 1 tab(s) orally once a day Active Carvedilol 12.5 MG 1 tab(s) orally 2 times a day Active Losartan Potassium 50 MG 1 tab(s) orally once a day Active Tamiflu 75 MG 1 cap(s) orally 2 times a day; Duration: 5 day(s) 06/19/2024 Active Spironolactone 25 MG 1 tab(s) orally onc e a day Active Promethazine-DM 6.25-15 MG/5ML 5 mL orally every 6 hours; Duration: 10 days 06/19/2024 Active Furosemide 20 MG 1 tab(s) orally every other day Active Ondansetron 4 MG 1 tab(s) orally 3 times a day; Duration: 5 days 06/19/2024 Active Encounters Encounter Location Date Provider Diagnosis [facility] [address] [place], [place] [address] 08/18/2024 Provider Migration Influenza A J10.1 and Atherosclerosis of agdaagux coronary artery of agdaagux heart without angina pectoris I25.10 Assessments Encounter Date Diagnosis (ICD Code) Assessment Notes Treatment Notes Treatment Clinical Notes Section Notes 08/18/2024 Influenza A (ICD-10 - J10.1) 08/18/2024 Atherosclerosis of agdaagux coronary artery of agdaagux heart without angina pectoris (ICD-10 - I25.10) Plan Of Treatment Medication Medication Name Sig Start Date Stop Date Notes OZEMPIC 8 MG/3 ML (2 MG DOSE) 2 MG SUBCUTANEOUSLY ONCE A WEEK; Duration: 84 DAYS 04/05/2024 *Please review for potential replacement for e-prescription and drug interaction check* Tamiflu 75 MG 1 cap(s) orally 2 ti mes a day; Duration: 5 day(s) 06/19/2024 Promethazine-DM 6.25-15 MG/5ML 5 mL orally every 6 hours; Duration: 10 days 06/19/2024 Ondansetron 4 MG 1 tab(s) orally 3 ti mes a day; Duration: 5 days 06/19/2024 Next Appt Details Provider Name:Delio Arcos, 06/13/2025 09:15:00 AM, [address], [address], Progress Notes * Neeru LONGODOB:1965 (60 yo F)Acc No.[id number]:08/18/2024 Patient: Neeru DOUGLASS Provider: Shade mohamud Migration :1965 A ge:59 Y S ex:Female Date:08/18/2024 Address:[address] , [place], [id number] Pcp:Delio Arcos Subjective: * Chief Complaints: * 1 . [facility] To [facility] Conversion Encounter. * Medical History: * Medications: T aking Spironolactone 25 MG Tablet 1 tab(s) orally once a day , Taking Furosemide 20 MG Tablet 1 tab(s) orally every other day , Taking Atorvastatin Calcium 80 MG Tablet 1 tab(s) orally once a day , Taking Aspirin 81 MG Tablet Delayed Release 1 tab(s) orally once a day , Taking Effient 10 MG Tablet 1 tab(s) orally once a day , Taking Carvedilol 12.5 MG Tablet 1 tab(s) orally 2 times a day , Taking Losartan Potassium 50 MG Tablet 1 tab(s) orally once a day , Taking Famotidine 20 MG Tablet 2 tab(s) orally 2 times a day prn , Taking traZODone HCl 50 MG Tablet 1/2 tab-1 tablet orally every night , Taking POTASSIUM CHLORIDE (EQV-K-TAB) 10 MEQ TABLET, EXTENDED RELEASE TAKE 1 TABLET BY MOUTH ONCE DAILY , Notes to Pharmacist: *Please review for potential replacement for e-prescription and drug interaction check*, Taking Celecoxib 200 MG Capsule 1 cap(s) orally 2 times a day * Allergies: L isinopril. Objective: * Vitals: Assessment: * Assessment: 1. I nfluenza A - J10.1 (Primary) 2 . A therosclerosis of agdaagux coronary artery of agdaag[place] heart without angina pectoris - I25.10 Plan: * Treatment: 2. A therosclerosis of agdaagux coronary artery of agdaag[place] heart without angina pectoris Increase OZEMPIC SOLUTION, 8 MG/3 ML (2 MG DOSE), 2 MG, SUBCUTANEOUSLY, ONCE A WEEK, 84 DAYS, 9, Refills 1, Notes to Pharmacist: *Please review for potential replacement for e-prescription and drug interaction check*. * * Electronic signature of Prov ider Migration on 04/22/2025 at 07:02 AM EST Sign off status: Pending * Provider: Shade mohamud Migration Date: 0 08/18/2024 Generated for Jessica price/Carri/eTransmitting on: 1 06/23/2024 07:02 AM EST
--- OUTSIDE RECORDS SUMMARY | 2024-12-18 11:30 | XMS_ITS ---
Author Organization [facility] Address [address] [place] [address] Care Team Providers Care Poultry Hatchery Manager Name Role Phone Delio Arcos Primary Care Provider [phone] REASON FOR VISIT med ck Encounters Encounter Location Date Provider Diagnosis [address] [address] 12/18/2024 Delio Arcos Plan Of Treatment Next Appt Details Provider Name:Delio Arcos, 06/13/2025 09:15:00 AM, [address] [place] [address], [address], Progress Notes * Neeru LONGODOB:1965 (60 yo F)Acc No.[id number]:12/18/2024 Progress Notes Patient: Neeru DOUGLASS Provider: Chalo Arcos MD :1965 A ge:59 Y S ex:Female Date:12/18/2024 Address:[address], [place] Subjective: * Chief Complaints: * 1 . Med ck. * Medical History: Objective: * Vitals: Assessment: Plan: * Treatment: * * Electronic signature of Carlitos Arcos MD FAAP on 04/22/2025 at 07:02 AM EST Sign off status: Pending * Provider: Chalo Arcos MD Date: 0 12/18/2024 Generated for Jessica price/Carri/Jacque on: 1 06/23/2024 07:02 AM EST
--- OUTSIDE RECORDS SUMMARY | 2025-03-21 04:15 | XMS_ITS ---
Author Organization [facility] Address [address] [place] [address] Care Team Providers Care Practice Specialist Name Role Phone Delio Arcos Primary Care Provider Allergies Allergen (clinical drug ingredient) Drug/Non Drug Allergy documented on EMR Reaction Allergy Type Onset Date Status lisinopril Lisinopril Unknown Drug Allergy Activ e Results Component Value Reference Range Notes THYROID PANEL WITH TSH (7444 ) Reviewed date:03/25/2025 10:51:22 AM Interpretation: Performing Lab:[facility] [employer] [facility], [id number] Lorenzo Weir Notes/Report: NON-FASTING; NON-FASTING; NON-FASTING; NON-FASTING; NON-FAST FASTING:YES FASTING: YES T3 UPTAKE 26 22-35 % T4 (THYROXINE), TOTAL 9.7 5.1-11.9 mcg/dL FREE T4 INDEX (T7) 2.5 1.4-3.8 TSH 1.46 0.40-4.50 mIU/L LIPID PANEL, STANDARD (7600) Reviewed date:03/25/2025 10:51:22 AM Interpretation: Performing Lab:[facility] [employer] [facility] ([address]), [id number] Lorenzo Weir Notes/Report: NON-FASTING; NON-FASTING; NON-FASTING; NON-FASTING; NON-FAST FASTING:YES FASTING: YES CHOLESTEROL, TOTAL 128 <200 mg/dL HDL CHOLESTEROL 56 > OR = 50 mg/dL TRIGLYCERIDES 62 <150 mg/dL LDL-CHOLESTEROL 58 Reference range: <100 Desirable range <100 mg/dL for primary prevention; <70 mg/dL for patients with CHD or diabetic patients with > or = 2 CHD risk factors. LDL-C is now calculated using the Sin calculation, which is a validated novel method providing better accuracy than the Friedewald equation in the estimation of LDL-C. Spencer SS et al. SHYAM. 2013;310(19): 7050-4267 (http://education.Angstro/faq/OJJ114) CHOL/HDLC RATIO 2.3 <5.0 (calc) NON HDL CHOLESTEROL 72 <130 mg/dL (calc) For patients with diabetes plus 1 major ASCVD risk factor, treating to a non-HDL-C goal of <100 mg/dL (LDL-C of <70 mg/dL) is considered a therapeutic option. COMPREHENSIVE METABOLIC ELEAZAR Lee (69247) Reviewed date:03/25/2025 10:51:22 AM Interpretation: Performing Lab:[facility], [employer] Icrd7607 [facility], [facility] HospitalYxibYR[address] Lorenzo Weir Notes/Report: NON-FASTING; NON-FASTING; NON-FASTING; NON-FASTING; NON-FAST FASTING:YES FASTING: YES GLUCOSE 101 65-99 mg/dL Fasting reference interval For someone without known diabetes, a glucose value between 100 and 125 mg/dL is consistent with prediabetes and should be confirmed with a follow-up test. UREA NITROGEN (BUN) 24 7-25 mg/dL CREATININE 0.72 0.50-1.03 mg/dL EGFR 96 > OR = 60 mL/min/1.73m2 BUN/CREATININE RATIO SEE NOTE: 6-22 (calc) Not Reported: BUN and Creatinine are within reference range. SODIUM 144 135-146 mmol/L POTASSIUM 4.3 3.5-5.3 mmol/L CHLORIDE 104 98-110 mmol/L CARBON DIOXIDE 28 20-32 mmol/L CALCIUM 9.9 8.6-10.4 mg/dL PROTEIN, TOTAL 6.2 6.1-8.1 g/dL ALBUMIN 3.9 3.6-5.1 g/dL GLOBULIN 2.3 1.9-3.7 g/dL (calc) ALBUMIN/GLOBULIN RATIO 1.7 1.0-2.5 (calc) BILIRUBIN, TOTAL 0.6 0.2-1.2 mg/dL ALKALINE PHOSPHATASE 112 37-153 U/L AST 18 10-35 U/L ALT 22 6-29 U/L MAGNESIUM (622) Reviewed date:03/25/2025 10:51:22 AM Interpretation: Performing Lab:[facility], [employer] [facility] [place], [facility] HospitalQfczGP[address] Lorenzo Weir Notes/Report: NON-FASTING; NON-FASTING; NON-FASTING; NON-FASTING; NON-FAST FASTING:YES FASTING: YES MAGNESIUM 1.9 1.5-2.5 mg/dL PHOSPHATE ( PHOSPHORUS) (7 18) Reviewed date:03/25/2025 10:51:23 AM Interpretation: Performing Lab:[facility] [employer] [employer] [place], [facility] [id number] Lorenzo Weir Notes/Report: NON-FASTING; NON-FASTING; NON-FASTING; NON-FASTING; NON-FAST FASTING:YES FASTING: YES PHOSPHATE ( PHOSPHORUS) 3.9 2.5-4.5 mg/dL CBC (INCLUDES DIFF/PLT) (639 9) Reviewed date:03/25/2025 10:51:23 AM Interpretation: Performing Lab:[facility] [employer] [employer] [place], [facility] HospitalEepoEO[address] Lorenzo Weir Notes/Report: NON-FASTING; NON-FASTING; NON-FASTING; NON-FASTING; NON-FAST FASTING:YES FASTING: YES WHITE BLOOD CELL COUNT 4.8 3.8-10.8 Thousand/ uL RED BLOOD CELL COUNT 4.84 3.80-5.10 Million/uL HEMOGLOBIN 13.7 11.7-15.5 g/dL HEMATOCRIT 41.1 35.0-45.0 % MCV 84.9 80.0-100.0 fL MCH 28.3 27.0-33.0 pg MCHC 33.3 32.0-36.0 g/dL For adults, a slight decrease in the calculated MCHC value (in the range of 30 to 32 g/dL) is most likely not clinically significant; however, it should be interpreted with caution in correlation with other red cell parameters and the patient's clinical condition. RDW 13.2 11.0-15.0 % PLATELET COUNT 232 140-400 Thousand/uL MPV 10.9 7.5-12.5 fL ABSOLUTE NEUTROPHILS 2904 7044-4718 cells/uL ABSOLUTE LYMPHOCYTES 8230 687-8048 cells/uL ABSOLUTE MONOCYTES 432 200-950 cells/uL ABSOLUTE EOSINOPHILS 101 15-500 cells/uL ABSOLUTE BASOPHILS 10 0-200 cells/uL NEUTROPHILS 60.5 LYMPHOCYTES 28.2 MONOCYTES 9.0 EOSINOPHILS 2.1 BASOPHILS 0.2 B TYPE NATRIURETIC PEPTIDE ( BNP) (98863) Reviewed date:03/25/2025 10:51:23 AM Interpretation: Performing Lab:[facility], [facility]ana [address], [facility] HospitalOwicFF[address] Lorenzo Weir Notes/Report: NON-FASTING FASTING:YES FASTING: YES B TYPE NATRIURETIC PEPTIDE (BNP) 162 <100 pg/mL BNP levels increase with age in the general population with the highest values seen in individuals greater than 75 years of age. Reference: J. Am. Tadeo. Cardiol. 2002; 40:976-982. Reason For Referral Reason Please try to PA her Ozempic for coronary disease Diagnosis 1 Atherosclerosis of n ative coronary artery of eagle heart without angina pectoris (I25.10) Referral Organization [facility] JONI HENSON Referring Provider First Name Delio Referring Provider Last Name Josselyn Referring Provider Speciality Internal M edicine General Notes Lloyd Arriaga 11/2024 02:28:14 PM > PA done on cover my meds Referral Priority Routine Reason New onset trigeminy, please see if [facility] cardiology can see her faster than her next appointment Diagnosis 1 Trigeminy (R00.8) Referral Organization [facility] JONI SIXTO Referring Provider First Name Delio Referring Provider Last Name Josselyn Referring Provider Speciality Internal M edicine Referred Organization [facility] Referred Address [address] [facility], [place], [place],[address],[place] Referred Provider Specialty Cardiovascul ar Disease General Notes Morelia Lentz 2024 11:33:06 AM >Sent to [facility] cardiology Referral Priority Urgent Reason Abdominal ultrasound -evaluate for fatty liver Diagnosis 1 Generalized abdomina l pain (R10.84) Referral Organization [facility] JONI SIXTO Referring Provider First Name Delio Referring Provider Last Name Josselyn Referring Provider Speciality Internal M edicine Referred Organization [facility] Referred Address [address] [facility] [place],[place] Referred Provider Specialty Diagnostic R adiology General Notes Morelia Lentz 2024 11:45:03 AM >Sent to [facility] to schedule Referral Priority Routine Reason Sleep study-Marlene Diagnosis 1 Snoring (R06.83) Referral Organization [facility] Referring Provider First Name Delio Referring Provider Last Name Toryeamon Referring Provider Speciality Internal M edicine Referred Organization [facility] Referred Address [address] [facility] [place],[place] Referred Provider Specialty Sleep Study General Notes Morelia Lentz 2024 11:53:06 AM >sent to [facility] Referral Priority Routine REASON FOR VISIT med ck, irregular heart rate Medications Medication SIG (Take, Route, Frequency, Duration) Notes Start Date End Date Status traZODone HCl 50 MG TAKE 1/2 TO 1 (ONE-H FPC TO ONE) TABLET BY MOUTH AT BEDTIME; Duration: 90 Active Carvedilol 12.5 MG 1 tab(s) orally 2 ti mes a day; Duration: 90 days Active Celecoxib 200 MG 1 cap(s) orally 2 ti mes a day; Duration: 30 days Active Potassium Chloride ER 10 MEQ Take 1 tablet by mouth once daily; Duration: 90 Active Famotidine 20 MG 2 tab(s) orally 2 ti mes a day prn; Duration: 30 days prn Active Losartan Potassium 25 MG 1 tablet orally once a day Active Ozempic (2 MG/DOSE) 8 MG/3ML 0.25mg Subcutaneous weekly; Duration: 30 days 03/21/2025 Active Atorvastatin Calcium 80 MG 1 tab(s) oral ly once a day Active Aspirin 81 MG 1 tab(s) orally once a day Active Spironolactone 25 MG 1 tab(s) orally onc e a day Active Furosemide 20 MG 1 tab(s) orally ever y other day prn Active Problems Problem Type SNOMED Code ICD Code Onset Dates Problem Status W/U Status Risk Notes Problem Cardiac arrhythmia (559031520) Ventricular dysrhythmia (I49.9) Active confirmed Vital Signs Temperature 97.9 degrees Fahrenheit 03/21/20 25 Blood pressure systolic 124 mm Hg 03/21/20 25 Blood pressure diastolic 90 mm Hg 025 Heart Rate 64 /min 03/21/2025 Height 65 in 03/21/2025 Weight 308 lbs 03/21/2025 BMI 51.25 kg/m2 03/21/2025 Encounters Encounter Location Date Provider Diagnosis Dari Calderon [facility] [address] [facility] [address] [place] [address] 03/21/2025 Delio Arcos Ventricular dysrhyth tatyana I49.9 ; Trigeminy R00.8 ; Atherosclerosis of eagle coronary artery of eagle heart without angina pectoris I25.10 ; Generalized abdominal pain R10.84 and Snoring R06.83 Assessments Encounter Date Diagnosis (ICD Code) Assessment Notes Treatment Notes Treatment Clinical Notes Section Notes 03/21/2025 Ventricular dysrhythmia (ICD-10 - I49.9) EKG shows multiple PVCs in a trigeminy pattern. Recommended the patient stay on slightly lower dose beta-kizzy at 12.5 given her relatively low blood pressure and low heart rate. We will see if her cardiology group at [facility] can see her little earlier. I will check metabolic studies including electrolytes and thyroid levels. Discussed with her symptoms of presyncope, dizziness or heart racing that would mandate going to the ER. 03/21/2025 Trigeminy (ICD-10 - R00.8) 03/21/2025 Atherosclerosis of eagle coronary artery of eagle heart without angina pectoris (ICD-10 - I25.10) Given her history of atherosclerosis and stent placement it is imperative that she be on a GLP. We will try to get this preauthorized. 03/21/2025 Generalized abdominal pain (ICD-10 - R10.84) Patient also reports generalized abdominal pain, high risk for fatty liver, will check liver ultrasound and labs 03/21/2025 Snoring (ICD-10 - R06.83) reports snoring, high risk for sleep apnea, will check this also Plan Of Treatment Medication Medication Name Sig Start Date Stop Date Notes Ozempic (2 MG/DOSE) 8 MG/3ML 0.25mg Subc utaneous weekly; Duration: 30 days 03/21/2025 Treatment Notes Assessment Notes Ventricular dysrhythmia EKG shows multiple PVCs in a trigeminy pattern. Recommended the patient stay on slightly lower dose beta-kizzy at 12.5 given her relatively low blood pressure and low heart rate. We will see if her cardiology group at [facility] can see her little earlier. I will check metabolic studies including electrolytes and thyroid levels. Discussed with her symptoms of presyncope, dizziness or heart racing that would mandate going to the ER. Atherosclerosis of eagle co ronary artery of eagle heart without angina pectoris Given her history of atherosclerosis and stent placement it is imperative that she be on a GLP. We will try to get this preauthorized. Generalized abdominal pain Patient also reports generalized abdominal pain, high risk for fatty liver, will check liver ultrasound and labs Snoring reports snor ing, high risk for sleep apnea, will check this also Referrals Referral Date Details 03/21/2025 03/21/2025, Please t ry to PA her Ozempic for coronary disease 03/21/2025 03/21/2025, Neno wilson, please see if [facility] cardiology can see her faster than her next appointment, [address] [place], [address], 03/21/2025 03/21/2025, Abdomina l ultrasound-evaluate for fatty liver, [address] [place], [address], 03/21/2025 03/21/2025, [facility], [address] [facility] [place], [address], Next Appt Details Follow Up: 4 Weeks, Reason: Provider Name:Delio Arcos, 06/13/2025 09:15:00 AM, [address] [place] [address], [phone], Progress Notes * Neeru LONGODOB:1965 (59 yo F)Acc No.[id number]:03/21/2025 Progress Notes Patient: Neeru DOUGLASS Provider: Chalo Arcos MD :1965 A ge:59 Y S ex:Female Date:03/21/2025 Address:[address] [place], [place] [id number] Subjective: * Chief Complaints: * 1 . Med ck. 2. Irregular heart rate. * HPI: g en: Patient is here for follow-up of her medical problems and also wants to talk about an irregular heart rate that she has been feeling over the past week or so. Of note her carvedilol dose was prescribed at 12.5 twice daily a couple of days ago but she notes that the irregular heart rate was occurring before this. She does not feel dizzy or weak and has not had any kind of syncopize in behaviors. No chest pain. Shortness of breath is about the same, slightly worse because she has gained quite a bit of weight over the summer. Very distressed about this, really would like to get back on a GLP agent which helped her lose weight. But has limitations with her insurance. * Medical History: U jefferson fibroid-hysterectomy, HTN, Hyperlipidemia, Morbid Obesity, Seasonal allergies, headache disorder-negative MRI May 2017, normal sedimentation rate, Normal mammogrm 06/04 and 07/2022 and 05/08, Normal DEXA 05/2019, negative cologuard testing March 2020 and 05/08, CAD. * Surgical History: p artial hysterectomy , repair fallopian tube , cholecystectomy , Stent 09/2023. * Hospitalization/Major Diagno stic Procedure: u lcers . * Family History: F ather: , HTN, stomach cancer. M other: alive, HTN. P aternal Grand Father: , CAD. P aternal Grand Mother: , CAD. M aternal Grand Father: , CAD. Maternal Grand Mother: . P aternal uncle: alive, 1 uncle Resp. complications. P aternal aunt: alive. M aternal uncle: alive. M aternal aunt: alive. S iblings: alive. 1 brother(s) . 1 son(s) . . * Social History: S moking: no A re you a:: nonsmoker. R ecreational drug use: no. Exercise: yes. Home smoke detector use: yes. Caffeine: yes, frequency:2 cups coffee per day. Living Will: No. Alcohol: no. Sexually active: yes. Travel outside [place]: no. Occupation: administrative. * Medications: T aking Spironolactone 25 MG Tablet 1 tab(s) orally once a day , Taking Furosemide 20 MG Tablet 1 tab(s) orally every other day , Notes to Pharmacist: prn, Taking Atorvastatin Calcium 80 MG Tablet 1 tab(s) orally once a day , Taking Aspirin 81 MG Tablet Delayed Release 1 tab(s) orally once a day , Taking Famotidine 20 MG Tablet 2 tab(s) orally 2 times a day prn , Notes to Pharmacist: prn, Taking Losartan Potassium 25 MG Tablet 1 tablet orally once a day , Taking traZODone HCl 50 MG Tablet TAKE 1/2 TO 1 (ONE-HALF TO ONE) TABLET BY MOUTH AT BEDTIME , Taking Celecoxib 200 MG Capsule 1 cap(s) orally 2 times a day , Taking Potassium Chloride ER 10 MEQ Tablet Extended Release Take 1 tablet by mouth once daily , Taking Carvedilol 12.5 MG Tablet 1 tab(s) orally 2 times a day , Discontinued Ozempic (0.25 or 0.5 MG/DOSE) 2 MG/3ML Solution Pen-injector 0.5mg Subcutaneous once a week , Medication List reviewed and reconciled with the patient * Allergies: L isinopril. Objective: * Vitals: N urse: dw, Pain: 0, Temp: 97.9, RR: 18, HR: 64, BP: 124/90, Ht: 65, Wt: 308, BMI:51.25. * Examination: G eneral Examination: M orbidly obese. Pleasant, talkative, alert and oriented. Neurologically intact. Heart rate regularly irregular with ectopic beat in a recurring pattern. Lungs clear. No ankle edema although exam is limited because of her obesity. Assessment: * Assessment: 1. V entricular dysrhythmia - I49.9 (Primary) 2 . T rigeminy - R00.8 ? 3 . A therosclerosis of eagle coronary artery of eagle heart without angina pectoris - I25.10 4 . G eneralized abdominal pain - R10.84 5 . S noring - R06.83 Plan: * Treatment: Value Reference Range T 3 UPTAKE 26 22-35 - % * T 4 (THYROXINE), TOTAL 9.7 5.1-11.9 - mcg/dL * F REE T4 INDEX (T7) 2.5 1.4-3.8 - * T SH 1.46 0.40-4.50 - mIU/L * Ayleen Pizarro N 03/25/20 10:51:14 AM EST > faxedThis lab was reviewed by Ayleen Pizarro on 03/25/2025 at 10:51 AM EST ?LAB: LIPID PANEL, STANDARD (7600)* Value Reference Range T RIGLYCERIDES 62 <150 - mg/dL * C HOLESTEROL, TOTAL 128 <200 - mg/dL * H DL CHOLESTEROL 56 > OR = 50 - mg/dL * L DL-CHOLESTEROL 58 - mg/dL (calc) * C HOL/HDLC RATIO 2.3 <5.0 - (calc) * N ON HDL CHOLESTEROL 72 <130 - mg/dL (calc) * JuarezMasoodi N 03/25/20 10:51:14 AM EST > faxedThis lab was reviewed by Ayleen Pizarro on 03/25/2025 at 10:51 AM EST ?LAB: COMPREHENSIVE METABOLIC PANEL (46882)* Value Reference Range G LUCOSE 101 H 65-99 - mg/dL * U SHANTELL NITROGEN (BUN) 24 7-25 - mg/dL * C REATININE 0.72 0.50-1.03 - mg/dL * B UN/CREATININE RATIO SEE NOTE: 6-22 - (calc) * S ODIUM 144 135-146 - mmol/L * P OTASSIUM 4.3 3.5-5.3 - mmol/L * C HLORIDE 104 98-110 - mmol/L * C ARBON DIOXIDE 28 20-32 - mmol/L * C ALCIUM 9.9 8.6-10.4 - mg/dL * P ROTEIN, TOTAL 6.2 6.1-8.1 - g/dL * A LBUMIN 3.9 3.6-5.1 - g/dL * G LOBULIN 2.3 1.9-3.7 - g/dL (calc ) * A LBUMIN/GLOBULIN RATIO 1.7 1.0-2.5 - (calc) * B ILIRUBIN, TOTAL 0.6 0.2-1.2 - mg/dL * A LKALINE PHOSPHATASE 112 37-153 - U/L * A ST 18 10-35 - U/L * A LT 22 6-29 - U/L * E GFR 96 > OR = 60 - mL/min/1 .73m2 * Ayleen Pizarro 03/25/20 10:51:14 AM EST > faxedThis lab was reviewed by Ayleen Pizarro on 03/25/2025 at 10:51 AM EST ?LAB: MAGNESIUM (622)* Value Reference Range M AGNESIUM 1.9 1.5-2.5 - mg/dL * Ayleen Pizarro 03/25/20 10:51:14 AM EST > faxedThis lab was reviewed by Ayleen Pizarro on 03/25/2025 at 10:51 AM EST ?LAB: PHOSPHATE ( PHOSPHORUS) (718)* Value Reference Range P HOSPHATE ( PHOSPHORUS) 3.9 2.5-4.5 - mg/dL * Ayleen Pizarro 03/25/20 10:51:14 AM EST > faxedThis lab was reviewed by Ayleen Pizarro on 03/25/2025 at 10:51 AM EST ?LAB: CBC (INCLUDES DIFF/PLT) (6540)* Value Reference Range W SILVANA BLOOD CELL COUNT 4.8 3.8-10.8 - Thousan d/uL * R ED BLOOD CELL COUNT 4.84 3.80-5.10 - Million/ uL * H EMOGLOBIN 13.7 11.7-15.5 - g/dL * H EMATOCRIT 41.1 35.0-45.0 - % * M CV 84.9 80.0-100.0 - fL * M CH 28.3 27.0-33.0 - pg * M CHC 33.3 32.0-36.0 - g/dL * R DW 13.2 11.0-15.0 - % * P LATELET COUNT 232 140-400 - Thousand/u L * N EUTROPHILS 60.5 - % * A BSOLUTE NEUTROPHILS 2904 0754-8910 - cells/uL * L YMPHOCYTES 28.2 - % * A BSOLUTE LYMPHOCYTES 0567 318-8438 - cells/uL * M ONOCYTES 9.0 - % * A BSOLUTE MONOCYTES 432 200-950 - cells/uL * E OSINOPHILS 2.1 - % * A BSOLUTE EOSINOPHILS 101 15-500 - cells/uL * B ASOPHILS 0.2 - % * A BSOLUTE BASOPHILS 10 0-200 - cells/uL * M PV 10.9 7.5-12.5 - fL * Juarez Ayleen Guerin 03/25/20 10:51:14 AM EST > faxedThis lab was reviewed by Ayleen Pizarro on 03/25/2025 at 10:51 AM EST ?LAB: B TYPE NATRIURETIC PEPTIDE (BNP) (66766)* Value Reference Range B TYPE NATRIURETIC 162 H <100 - pg/mL * Ayleen Pizarro 03/25/20 10:51:14 AM EST > faxedThis lab was reviewed by Ayleen Pizarro on 03/25/2025 at 10:51 AM EST Notes: EKG shows multiple PVCs in a trigeminy pattern. Recommended the patient stay on slightly lower dose beta-kizzy at 12.5 given her relatively low blood pressure and low heart rate. We will see if her cardiology group at [facility] can see her little earlier. I will check metabolic studies including electrolytes and thyroid levels. Discussed with her symptoms of presyncope, dizziness or heart racing that would mandate going to the ER. ??2.?Trigeminy?LAB: THYROID PANEL WITH TSH (7444)* Value Reference Range T 3 UPTAKE 26 22-35 - % * T 4 (THYROXINE), TOTAL 9.7 5.1-11.9 - mcg/dL * F REE T4 INDEX (T7) 2.5 1.4-3.8 - * T SH 1.46 0.40-4.50 - mIU/L * Ayleen Pizarro 03/25/20 10:51:14 AM EST > faxedThis lab was reviewed by Ayleen Pizarro on 03/25/2025 at 10:51 AM EST ?LAB: LIPID PANEL, STANDARD (7600)* Value Reference Range T RIGLYCERIDES 62 <150 - mg/dL * C HOLESTEROL, TOTAL 128 <200 - mg/dL * H DL CHOLESTEROL 56 > OR = 50 - mg/dL * L DL-CHOLESTEROL 58 - mg/dL (calc) * C HOL/HDLC RATIO 2.3 <5.0 - (calc) * N ON HDL CHOLESTEROL 72 <130 - mg/dL (calc) * Ayleen Pizarro 03/25/20 10:51:14 AM EST > faxedThis lab was reviewed by Ayleen Pizarro on 03/25/2025 at 10:51 AM EST ?LAB: COMPREHENSIVE METABOLIC PANEL (36223)* Value Reference Range G LUCOSE 101 H 65-99 - mg/dL * U SHANTELL NITROGEN (BUN) 24 7-25 - mg/dL * C REATININE 0.72 0.50-1.03 - mg/dL * B UN/CREATININE RATIO SEE NOTE: 6-22 - (calc) * S ODIUM 144 135-146 - mmol/L * P OTASSIUM 4.3 3.5-5.3 - mmol/L * C HLORIDE 104 98-110 - mmol/L * C ARBON DIOXIDE 28 20-32 - mmol/L * C ALCIUM 9.9 8.6-10.4 - mg/dL * P ROTEIN, TOTAL 6.2 6.1-8.1 - g/dL * A LBUMIN 3.9 3.6-5.1 - g/dL * G LOBULIN 2.3 1.9-3.7 - g/dL (calc ) * A LBUMIN/GLOBULIN RATIO 1.7 1.0-2.5 - (calc) * B ILIRUBIN, TOTAL 0.6 0.2-1.2 - mg/dL * A LKALINE PHOSPHATASE 112 37-153 - U/L * A ST 18 10-35 - U/L * A LT 22 6-29 - U/L * E GFR 96 > OR = 60 - mL/min/1 .73m2 * Ayleen Pizarro 03/25/20 10:51:14 AM EST > faxedThis lab was reviewed by Ayleen Pizarro on 03/25/2025 at 10:51 AM EST ?LAB: MAGNESIUM (622)* Value Reference Range M AGNESIUM 1.9 1.5-2.5 - mg/dL * Ayleen Pizarro 03/25/20 10:51:14 AM EST > faxedThis lab was reviewed by Ayleen Pizarro on 03/25/2025 at 10:51 AM EST ?LAB: PHOSPHATE ( PHOSPHORUS) (718)* Value Reference Range P HOSPHATE ( PHOSPHORUS) 3.9 2.5-4.5 - mg/dL * Ayleen Pizarro 03/25/20 10:51:14 AM EST > faxedThis lab was reviewed by Ayleen Pizarro on 03/25/2025 at 10:51 AM EST ?LAB: CBC (INCLUDES DIFF/PLT) (6288)* Value Reference Range W SILVANA BLOOD CELL COUNT 4.8 3.8-10.8 - Thousan d/uL * R ED BLOOD CELL COUNT 4.84 3.80-5.10 - Million/ uL * H EMOGLOBIN 13.7 11.7-15.5 - g/dL * H EMATOCRIT 41.1 35.0-45.0 - % * M CV 84.9 80.0-100.0 - fL * M CH 28.3 27.0-33.0 - pg * M CHC 33.3 32.0-36.0 - g/dL * R DW 13.2 11.0-15.0 - % * P LATELET COUNT 232 140-400 - Thousand/u L * N EUTROPHILS 60.5 - % * A BSOLUTE NEUTROPHILS 2904 4428-2728 - cells/uL * L YMPHOCYTES 28.2 - % * A BSOLUTE LYMPHOCYTES 5411 189-5009 - cells/uL * M ONOCYTES 9.0 - % * A BSOLUTE MONOCYTES 432 200-950 - cells/uL * E OSINOPHILS 2.1 - % * A BSOLUTE EOSINOPHILS 101 15-500 - cells/uL * B ASOPHILS 0.2 - % * A BSOLUTE BASOPHILS 10 0-200 - cells/uL * M PV 10.9 7.5-12.5 - fL * Ayleen Pizarro 03/25/20 10:51:14 AM EST > faxedThis lab was reviewed by Ayleen Pizarro on 03/25/2025 at 10:51 AM EST ?LAB: B TYPE NATRIURETIC PEPTIDE (BNP) (70741)* Value Reference Range B TYPE NATRIURETIC 162 H <100 - pg/mL * Ayleen Pizarro 03/25/20 10:51:14 AM EST > faxedThis lab was reviewed by Ayleen Pizarro on 03/25/2025 at 10:51 AM EST ? Referral To: ?Reason:New onset trigeminy, please see if [facility] cardiology can see her faster than her next appointment 3.?Atherosclerosis of eagle coronary artery of eagle heart without angina pectoris? Start Ozempic (2 MG/DOSE) Solution Pen-injector, 8 MG/3ML, 0.25mg, Subcutaneous, weekly, 30 days, 2, Refills 3.?LAB: THYROID PANEL WITH TSH (7444)* Value Reference Range T 3 UPTAKE 26 22-35 - % * T 4 (THYROXINE), TOTAL 9.7 5.1-11.9 - mcg/dL * F REE T4 INDEX (T7) 2.5 1.4-3.8 - * T SH 1.46 0.40-4.50 - mIU/L * Ayleen Pizarro 03/25/20 10:51:14 AM EST > faxedThis lab was reviewed by Ayleen Pizarro on 03/25/2025 at 10:51 AM EST ?LAB: LIPID PANEL, STANDARD (7600)* Value Reference Range T RIGLYCERIDES 62 <150 - mg/dL * C HOLESTEROL, TOTAL 128 <200 - mg/dL * H DL CHOLESTEROL 56 > OR = 50 - mg/dL * L DL-CHOLESTEROL 58 - mg/dL (calc) * C HOL/HDLC RATIO 2.3 <5.0 - (calc) * N ON HDL CHOLESTEROL 72 <130 - mg/dL (calc) * Ayleen Pizarro 03/25/20 10:51:14 AM EST > faxedThis lab was reviewed by Ayleen Pizarro on 03/25/2025 at 10:51 AM EST ?LAB: COMPREHENSIVE METABOLIC PANEL (44988)* Value Reference Range G LUCOSE 101 H 65-99 - mg/dL * U SHANTELL NITROGEN (BUN) 24 7-25 - mg/dL * C REATININE 0.72 0.50-1.03 - mg/dL * B UN/CREATININE RATIO SEE NOTE: 6-22 - (calc) * S ODIUM 144 135-146 - mmol/L * P OTASSIUM 4.3 3.5-5.3 - mmol/L * C HLORIDE 104 98-110 - mmol/L * C ARBON DIOXIDE 28 20-32 - mmol/L * C ALCIUM 9.9 8.6-10.4 - mg/dL * P ROTEIN, TOTAL 6.2 6.1-8.1 - g/dL * A LBUMIN 3.9 3.6-5.1 - g/dL * G LOBULIN 2.3 1.9-3.7 - g/dL (calc ) * A LBUMIN/GLOBULIN RATIO 1.7 1.0-2.5 - (calc) * B ILIRUBIN, TOTAL 0.6 0.2-1.2 - mg/dL * A LKALINE PHOSPHATASE 112 37-153 - U/L * A ST 18 10-35 - U/L * A LT 22 6-29 - U/L * E GFR 96 > OR = 60 - mL/min/1 .73m2 * Ayleen Pizarro 03/25/20 10:51:14 AM EST > faxedThis lab was reviewed by Ayleen Pizarro on 03/25/2025 at 10:51 AM EST ?LAB: MAGNESIUM (622)* Value Reference Range M AGNESIUM 1.9 1.5-2.5 - mg/dL * Ayleen Pizarro 03/25/20 10:51:14 AM EST > faxedThis lab was reviewed by Ayleen Pizarro on 03/25/2025 at 10:51 AM EST ?LAB: PHOSPHATE ( PHOSPHORUS) (718)* Value Reference Range P HOSPHATE ( PHOSPHORUS) 3.9 2.5-4.5 - mg/dL * Ayleen Pizarro 03/25/20 10:51:14 AM EST > faxedThis lab was reviewed by Ayleen Pizarro on 03/25/2025 at 10:51 AM EST ?LAB: CBC (INCLUDES DIFF/PLT) (5760)* Value Reference Range W SILVANA BLOOD CELL COUNT 4.8 3.8-10.8 - Thousan d/uL * R ED BLOOD CELL COUNT 4.84 3.80-5.10 - Million/ uL * H EMOGLOBIN 13.7 11.7-15.5 - g/dL * H EMATOCRIT 41.1 35.0-45.0 - % * M CV 84.9 80.0-100.0 - fL * M CH 28.3 27.0-33.0 - pg * M CHC 33.3 32.0-36.0 - g/dL * R DW 13.2 11.0-15.0 - % * P LATELET COUNT 232 140-400 - Thousand/u L * N EUTROPHILS 60.5 - % * A BSOLUTE NEUTROPHILS 2904 0208-6397 - cells/uL * L YMPHOCYTES 28.2 - % * A BSOLUTE LYMPHOCYTES 8800 069-5287 - cells/uL * M ONOCYTES 9.0 - % * A BSOLUTE MONOCYTES 432 200-950 - cells/uL * E OSINOPHILS 2.1 - % * A BSOLUTE EOSINOPHILS 101 15-500 - cells/uL * B ASOPHILS 0.2 - % * A BSOLUTE BASOPHILS 10 0-200 - cells/uL * M PV 10.9 7.5-12.5 - fL * Ayleen Pizarro 03/25/20 10:51:14 AM EST > faxedThis lab was reviewed by Ayleen Pizarro on 03/25/2025 at 10:51 AM EST ?LAB: B TYPE NATRIURETIC PEPTIDE (BNP) (92417)* Value Reference Range B TYPE NATRIURETIC 162 H <100 - pg/mL * Ayleen Pizarro 03/25/20 10:51:14 AM EST > faxedThis lab was reviewed by Ayleen Pizarro on 03/25/2025 at 10:51 AM EST Notes: Given her history of atherosclerosis and stent placement it is imperative that she be on a GLP. We will try to get this preauthorized.? Referral To: ?Reason:Please try to PA her Ozempic for coronary disease 4.?Generalized abdominal pain? Notes: Patient also reports generalized abdominal pain, high risk for fatty liver, will check liverultrasound and labs? Referral To: ?Reason:Abdominal ultrasound-evaluate for fatty liver 5.?Snoring? Notes: reports snoring, high risk for sleep apnea, will check this also? Referral To: ?Reason:Sleep study-[place] if this is quicker than [facility] please * Procedure Codes: 9 3000 EKG WITH INTERP. * Follow Up: 4 Weeks * * Sign off status: Completed true * Provider: Chalo Arcos MD Date: 05/21/2024 Generated for Filibertoi albert/Carri/eTransmitting on: 06/23/2024 07:03 AM EST History and Physical Notes * HPI (History of Present Illness) Category Sub-Category Detail Notes Category Not es gen Patient is here for follow-up of her medical problems and also wants to talk about an irregular heart rate that she has been feeling over the past week or so. Of note her carvedilol dose was prescribed at 12.5 twice daily a couple of days ago but she notes that the irregular heart rate was occurring before this. She does not feel dizzy or weak and has not had any kind of syncopize in behaviors. No chest pain. Shortness of breath is about the same, slightly worse because she has gained quite a bit of weight over the summer. Very distressed about this, really would like to get back on a GLP agent which helped her lose weight. But has limitations with her insurance. Examination Category Sub-Category Detail Notes Category Not es General Examination Morbidly obese. Pleasant, talkative, alert and oriented. Neurologically intact. Heart rate regularly irregular with ectopic beat in a recurring pattern. Lungs clear. No ankle edema although exam is limited because of her obesity Consultation Request Notes Referral Date Referring Provider Referred Provider Not es 03/21/2025 Delio Arcos , Please try t o PA her Ozempic for coronary disease 03/21/2025 Delio Arcos , New onset tr holly, please see if [facility] cardiology can see her faster than her next appointment 03/21/2025 Delio Arcos , Abdominal ul trasound-evaluate for fatty liver 03/21/2025 Delio Arcos , Sleep study- [place]
--- OUTSIDE RECORDS SUMMARY | 2025-03-21 06:34 | XMS_ITS ---
Author Organization [facility] Address [address] [place] [address] Care Team Providers Care Manifold Operator Name Role Phone Delio Arcos Primary Care Provider [phone] REASON FOR VISIT ultrasound order Encounters Encounter Location Date Provider Diagnosis [facility] [address] [place] [address] 03/21/2025 Delio Arcos Generalized abdomina l pain R10.84 and Fatty liver K76.0 Assessments Encounter Date Diagnosis (ICD Code) Assessment Notes Treatment Notes Treatment Clinical Notes Section Notes 03/21/2025 Generalized abdominal pain (ICD-10 - R10.84) 03/21/2025 Fatty liver (ICD-10 - K76.0) Plan Of Treatment Pending Test Test Name Order Date Ultrasound : Abdomen 03/21/2025 Next Appt Details Provider Name:Delio Gamez Tory[place], 06/13/2025 09:15:00 AM, [address], [address], Progress Notes * QINGNeeruDOB:1965 (59 yo F)Acc No.[id number]:03/21/2025 Patient: Neeru DOUGLASS :1965 A ge:59 Y S ex:Female Address:[place] [address] Subjective: * Chief Complaints: * U ltrasound order * Medical History: * Surgical History: * Hospitalization/Major Diagno stic Procedure: * Medications: Objective: * Vitals: * Physical Examination: Assessment: * Assessment: 1. G eneralized abdominal pain - R10.84 2 . F atty liver - K76.0 Plan: * Treatment: * 2.?Fatty liver?Imaging: Ultrasound : Abdomen* Morelia Lentz 03/21/2025 11: 38:40 AM EST > No auth required * * Procedure Codes: * true * Date: Generated for Jessica price/Carri/eTransmitting on: 06/23/2024 07:02 AM EST
--- OUTSIDE RECORDS SUMMARY | 2025-03-21 06:48 | XMS_ITS ---
Author Organization [facility] Address [address] [facility] [address] [place] [address] Care Team Providers Care Horticulture Teacher Name Role Phone Delio Arcos Primary Care Provider REASON FOR VISIT Sleep Study Order Encounters Encounter Location Date Provider Diagnosis [facility] [address] [facility] [address] [place] [address] 03/21/2025 Delio Arcos Snoring R06.83 Assessments Encounter Date Diagnosis (ICD Code) Assessment Notes Treatment Notes Treatment Clinical Notes Section Notes 03/21/2025 Snoring (ICD-10 - R06.83) Plan Of Treatment Pending Test Test Name Order Date Sleep Study 03/21/2025 Next Appt Details Provider Name:Delio Franco [place], 06/13/2025 09:15:00 AM, [address] [place] [address], [address], Progress Notes * Neeru LONGODOB:1965 (59 yo F)Acc No.[id number]:03/21/2025 Patient: Neeru DOUGLASS :1965 A ge:59 Y S ex:Female Address:[place] [address] Subjective: * Chief Complaints: * S leep Study Order * Medical History: * Surgical History: * Hospitalization/Major Diagno stic Procedure: * Medications: Objective: * Vitals: * Physical Examination: Assessment: * Assessment: 1. S noring - R06.83 Plan: * Treatment: * * Procedure Codes: * true * Date: Generated for Jessica Ornelas/Jacque on: 06/23/2024 07:02 AM EST
--- OUTSIDE RECORDS SUMMARY | 2025-04-18 04:15 | XMS_ITS ---
Author Organization [facility] Address [address] [place] [address] Care Team Providers Care Acute Care Physical Therapist Name Role Phone Delio Arcos Primary Care Provider Allergies Allergen (clinical drug ingredient) Drug/Non Drug Allergy documented on EMR Reaction Allergy Type Onset Date Status lisinopril Lisinopril Unknown Drug Allergy Activ e Results Component Value Reference Range Notes BASIC METABOLIC PANEL (54272 ) (Not yet reviewed by provider) Interpretation: Performing Lab:[id number] [id number] Lorenzo Weir Notes/Report: NON-FASTING; NON-FASTING GLUCOSE 101 65-99 mg/dL Fasting reference interval For someone without known diabetes, a glucose value between 100 and 125 mg/dL is consistent with prediabetes and should be confirmed with a follow-up test. UREA NITROGEN (BUN) 21 7-25 mg/dL CREATININE 0.60 0.50-1.05 mg/dL EGFR 103 > OR = 60 mL/min/1.73m2 BUN/CREATININE RATIO SEE NOTE: 6-22 (calc) Not Reported: BUN and Creatinine are within reference range. SODIUM 140 135-146 mmol/L POTASSIUM 4.4 3.5-5.3 mmol/L CHLORIDE 103 98-110 mmol/L CARBON DIOXIDE 32 20-32 mmol/L CALCIUM 9.8 8.6-10.4 mg/dL HEMOGLOBIN A1c (496) (Not ye t reviewed by provider) Interpretation: Performing Lab:[facility], [facility] [id number] [facility], [id number] Lorenzo Weir Notes/Report: NON-FASTING; NON-FASTING HEMOGLOBIN A1c 5.8 <5.7 % For someone without known diabetes, a hemoglobin A1c value between 5.7% and 6.4% is consistent with prediabetes and should be confirmed with a follow-up test. For someone with known diabetes, a value <7% indicates that their diabetes is well controlled. A1c targets should be individualized based on duration of diabetes, age, comorbid conditions, and other considerations. This assay result is consistent with an increased risk of diabetes. Currently, no consensus exists regarding use of hemoglobin A1c for diagnosis of diabetes for children. Reason For Referral Reason Sleep study through [facility] please patient would like this before the end of the year because of insurance reasons Diagnosis 1 Snoring (R06.83) Referral Organization [facility] JONI HENSON Referring Provider First Name Delio Referring Provider Last Name Josselyn Referring Provider Speciality Internal M edicine Referred Organization [facility] Referred Address [address] [place] [address], [place], [place],[address], Referred Provider Specialty Sleep Study Referral Priority Urgent REASON FOR VISIT med ck Medications Medication SIG (Take, Route, Frequency, Duration) Notes Start Date End Date Status Celecoxib 200 MG 1 cap(s) orally 2 ti mes a day; Duration: 30 days Active Potassium Chloride ER 10 MEQ Take 1 tablet by mouth once daily; Duration: 90 Active Losartan Potassium 25 MG 1 tablet orally once a day Active traZODone HCl 50 MG TAKE 1/2 TO 1 (ONE-H JOY TO ONE) TABLET BY MOUTH AT BEDTIME; Duration: 90 Active Carvedilol 25 MG 1 tablet with food Orally Twice a day; Duration: 90 days Active Aspirin 81 MG 1 tab(s) orally once a day Active Famotidine 20 MG 2 tab(s) orally 2 ti mes a day prn; Duration: 30 days prn Active Furosemide 20 MG 1 tab(s) orally ever y other day prn Active Atorvastatin Calcium 80 MG 1 tab(s) orally once a day Active Spironolactone 25 MG 1 tab(s) orally onc e a day Active Ozempic (2 MG/DOSE) 8 MG/3ML 0.25mg Subcutaneous weekly; Duration: 30 days 03/21/2025 Not-Taking Vital Signs Temperature 98.2 degrees Fahrenheit 04/18/20 25 Blood pressure systolic 125 mm Hg 04/18/20 25 Blood pressure diastolic 88 mm Hg 025 Heart Rate 60 /min 04/18/2025 Height 65 in 04/18/2025 Weight 317 lbs 04/18/2025 BMI 52.75 kg/m2 04/18/2025 Encounters Encounter Location Date Provider Diagnosis [facility] [address] [address] 04/18/2025 Delio Arcos Type 2 diabetes mellitus with other specified complication E11.69 ; Obesity, unspecified E66.9 ; Snoring R06.83 and Trigeminy R00.8 Assessments Encounter Date Diagnosis (ICD Code) Assessment Notes Treatment Notes Treatment Clinical Notes Section Notes 04/18/2025 Type 2 diabetes mellitus with other specified complication (ICD-10 - E11.69) Repeat BMP, A1c today If elevated, will resume GLP-1 and titrate to highest dose 04/18/2025 Obesity, unspecified (ICD-10 - E66.9) 04/18/2025 Snoring (ICD-10 - R06.83) Ordered Sleep Study 04/18/2025 Trigeminy (ICD-10 - R00.8) Agree w/ Cardiology plan for monitor (completed), TTE, stress test; next appt 04/25 Continue Carvedilol 25 mg BID Plan Of Treatment Treatment Notes Assessment Notes Type 2 diabetes mellitus wit h other specified complication Repeat BMP, A1c today If elevated, will resume GLP-1 and titrate to highest dose Snoring Ordered Sleep Study Trigeminy Agree w/ Cardiology plan for monitor (completed), TTE, stress test; next appt 04/25 Continue Carvedilol 25 mg BID Pending Test Test Name Order Date BASIC METABOLIC PANEL (56443) 04/18/2025 HEMOGLOBIN A1c (496) 04/18/2025 Referrals Referral Date Details 04/18/2025 04/18/2025, Sleep [facility] through [facility] please patient would like this before the end of the year because of insurance reasons, [address] [place], [address], Next Appt Details Follow Up: 2 Months, Reason: Provider Name:Delio Arcos, 06/13/2025 09:15:00 AM, [address] [facility] [address], [place], [address], Progress Notes * Neeru LONGODOB:1965 (60 yo F)Acc No.[id number]:04/18/2025 Progress Notes Patient: Neeru DOUGLASS Provider: Chalo Arcos MD :1965 A ge:60 Y S ex:Female Date:04/18/2025 Address:[address] [place], [place] [address]Chalo RAMOS [facility] Subjective: * Chief Complaints: * 1 . Med ck. * HPI: g en: Patient doing well since last visit. Has had a visit with Cardiology for her trigeminy and had a one-week monitor placed which she is still awaiting the results of. They also increased the dose of her Carvedilol which has made her feel better, marginally. She has an appointment on Tuesday for an Echo and stress test and then formal follow-up with Cardiology on 04/25. Denies L/D, pre-syncopal sxs, but is still having palpitations. Additionally, she is now off GLP-1 meds due to insurance coverage; would like to go back on one if it could be covered. * Medical History: U terine fibroid-hysterectomy, HTN, Hyperlipidemia, Morbid Obesity, Seasonal allergies, [...] by mouth once daily , Taking Carvedilol 25 MG Tablet 1 tablet with food Orally Twice a day , Not-Taking Ozempic (2 MG/DOSE) 8 MG/3ML Solution Pen-injector 0.25mg Subcutaneous weekly , Medication List reviewed and reconciled with the patient * Allergies: L isinopril. Objective: * Vitals: N urse: sw, Pain: 0, Temp: 98.2, RR: 18, HR: 60, BP: 125/88, Ht: 65, Wt: 317, BMI:52.75. * Examination: G eneral Examination: General P leasant and Cooperative, NAD on RA, obese. Heart: R egular Rate and Rhythm, no murmur, rubs or gallops. Lungs: L CTAB, No wheezes, crackles or rhonchi, Good air movement,. Abdomen: S oft, NTND, BSNA, No organomegaly or peritoneal signs.. Assessment: * Assessment: 1. T ype 2 diabetes mellitus with other specified complication - E11.69 (Primary) ?2. O besity, unspecified - E66.9 3 . S alvaing - R06.83 4 . T jan - R00.8 Plan: * Treatment: 2. S niurka Notes: Ordered Sleep Study Referral To: Reason:Sleep study through [facility] please patient would like this before the end of the year because of insurance reasons 3. T jan Notes: Agree w/ Cardiology plan for monitor (completed), TTE, stress test; next appt 04/25 Continue Carvedilol 25 mg BID * Follow Up: 2 Months * * Sign off status: Completed true * Provider: Chalo Arcos MD Date: 06/19/2024 Generated for Jessica price/Carri/eTransmitting on: 06/23/2024 07:02 AM EST History and Physical Notes * HPI (History of Present Illness) Category Sub-Category Detail Notes Category Not es gen Patient doing w ell since last visit. Has had a visit with Cardiology for her trigeminy and had a one-week monitor placed which she is still awaiting the results of. They also increased the dose of her Carvedilol which has made her feel better, marginally. She has an appointment on Tuesday for an Echo and stress test and then formal follow-up with Cardiology on 04/25. Denies L/D, pre-syncopal sxs, but is still having palpitations. Additionally, she is now off GLP-1 meds due to insurance coverage; would like to go back on one if it could be covered. Examination Category Sub-Category Detail Notes Category Not es General Examination Heart: Regular Rate and Rhythm, no murmur, rubs or gallops Lungs: LCTAB, No wheezes, c rackles or rhonchi, Good air movement, Abdomen: Soft, NTND, BSNA, No organomegaly or peritoneal signs. General Pleasant and Coopera tive, NAD on RA, obese Consultation Request Notes Referral Date Referring Provider Referred Provider Not es 04/18/2025 Delio Arcos , Sleep study through [facility] please patient would like this before the end of the year because of insurance reasons
--- NOTE | 2025-04-22 | CA_ITS ---
APPROVED REPORT Exam: Pharmacologic Technologist: Angelika Valadez Stress Nurse: Michelle Brandon Ht: 5 ft 5 in Wt: 310 lbs BSA: 2.38 m2 HR: 55 bpm BP: 112/67 mmHg Rhythm: Sinus Rhythm Indications: CAD, Abnormal EKG, Shortness of Breath, Fatigue Medical History Medical History: HTN, Smoking Medications: Aspirin, Atorvastatin, Carvedilol, Celecoxib, Furosemide, Losartan, Potassium Chloride ER, Spironolactone, Trazadone Allergies: Amlodipine Cardiac Risk Factors: HTN, Smoking Stress Test Details Test: Lexiscan HR Resting HR: 55 bpm Max Heart Rate (APMHR): 160.108158 bpm Target HR (85% APMHR): 136.266998 bpm Recovery HR: 65 bpm BP Resting BP: 112.0/67.0 mmHg Max BP: 155.0/60.0 mmHg Recovery BP: 142.0/53.0 mmHg ECG Resting ECG: Sinus Rhythm Stress ECG Conclusion Lungs clear to ausciltate prior to test start Rate related LBBB- patient reports medical history of LBBB Reclined at 2 minutes Vasodilation due to patient being dizzy Patient continued to be dizzy at 4 minutes Vasodilation and had a headache Less than 0.5mm upsloping ST segment changes Electronically signed by : Paige Rush MD 04/23/2025 13:08:35
--- NOTE | 2025-04-22 07:00 | NM_ITS ---
APPROVED REPORT Exam: Nuclear Stress Test Indication: Abnormal EKG, Palpitations, HTN, Family history, CAD Patient Location: Outpatient Stress Tech: Angelika Valadez CO Tech:Cristal Hu, ARRT, RT (R)(N) Ht: 5 ft 4 in Wt: 305 lbs Bra Size: 46DD HR: 50 bpm BP: 112/67 mmHg BSA: 2.34 m2 TID: 1.45 BMI: 52.3 History: Abnormal EKG, Palpitations, HTN, Family history, CAD Procedure: Patient received 0.4 mg of intravenous Lexiscan, resting heart rate 50 bpm, resting blood pressure 112/67 mmHg, with Lexiscan maximum heart rate achieved was 85 bpm which is % of the maximum predicted heart rate and blood pressure was 155/60 mmHg. With Lexiscan, patient denied any complaint of chest pain. Cardiac Stress and Resting SPECT Images: Cardiac Stress and Resting SPECT images were obtained using technetium 99m Myoview 32.2 mCi stress and 10.63 mCi at rest. Resting and stress imaging in supine and prone positions demonstrate a medium sized, moderate, reversible perfusion defect in the basal to mid anterior LV juárez. There is increase in transient ischemic dilatation ratio (TID 1.45), which may be suggestive of possible multivessel disease or balanced ischemia. Gated imaging demonstrates normal global LV systolic function. LVEF is calculated at 60%. Conclusion: Medium sized, moderate, reversible perfusion defect in the basal to mid anterior LV juárez. Findings are suggestive of reversible ischemia. There is increase in transient ischemic dilatation ratio (TID 1.45), which may be suggestive of possible multivessel disease or balanced ischemia. Gated imaging demonstrates normal global LV systolic function. LVEF is calculated at 60%. Electronically signed by : Paige Rush MD 04/23/2025 13:05:55
--- OUTSIDE RECORDS SUMMARY | 2025-04-22 07:03 | XMS_ITS | Patient Health Record ---
Author Organization [facility] Address [address] [place] [address] Care Team Providers Care Technology Sales Representative Name Role Phone Delio Arcos Primary Care Provider Migration, Provider Unavailable Unavailable Allergies Allergen (clinical drug ingredient) Drug/Non Drug Allergy documented on EMR Reaction Allergy Type Onset Date Status lisinopril Lisinopril Unknown Drug Allergy Activ e Results Component Value Reference Range Notes BASIC METABOLIC PANEL (47536 ) (Not yet reviewed by provider) Interpretation: Performing Lab:[facility] [id number] Lorenzo Weir Notes/Report: NON-FASTING; NON-FASTING GLUCOSE 101 [...] ye t reviewed by provider) Interpretation: Performing Lab:[facility], [facility] [address] [employer], CalligoAhnmLN[address] Lorenzo Weir Notes/Report: NON-FASTING; NON-FASTING HEMOGLOBIN A1c [...] A1c for diagnosis of diabetes for children. LIPID PANEL, STANDARD (2600) Reviewed date:12/28/2024 02:12:51 PM Interpretation: Performing Lab:[facility]e[address] [employer], CalligoKvvbJZ[address] Lorenzo Weir Notes/Report: NON-FASTING; NON-FASTING; NON-FASTING; NON-FASTING; NON-FAST FASTING:YES FASTING: YES CHOLESTEROL, TOTAL 132 <200 mg/dL HDL CHOLESTEROL 61 > OR = 50 mg/dL TRIGLYCERIDES 70 <150 mg/dL LDL-CHOLESTEROL 56 Reference range: <100 Desirable range <100 mg/dL for primary prevention; <70 mg/dL for patients with CHD or diabetic patients with > or = 2 CHD risk factors. LDL-C is now calculated using the Spencer-Hu calculation, which is a validated novel method providing better accuracy than the Friedewald equation in the estimation of LDL-C. Spencer SS et al. SHYAM. 2013;310(19): 9652-9747 (http://education.[facility].com/faq/SAY329) CHOL/HDLC RATIO 2.2 <5.0 (calc) NON HDL CHOLESTEROL 71 <130 mg/dL (calc) For patients with diabetes plus 1 major ASCVD risk factor, treating to a non-HDL-C goal of <100 mg/dL (LDL-C of <70 mg/dL) is considered a therapeutic option. HEMOGLOBIN A1c (496) Reviewed date:12/28/2024 02:12:52 PM Interpretation: Performing Lab:[facility] [employer], CalligoGevnKE[address] Lorenzo Weir Notes/Report: NON-FASTING; NON-FASTING; NON-FASTING; NON-FASTING; NON-FAST FASTING:YES FASTING: YES HEMOGLOBIN A1c 5.8 <5.7 % For someone [...] A1c for diagnosis of diabetes for children. THYROID PANEL WITH TSH (7444 ) Reviewed date:03/25/2025 10:51:22 AM Interpretation: Performing Lab:[facility] [id number] [employer] [facility], [facility] CenterRttiTW[address] Lorenzo Weir Notes/Report: NON-FASTING; NON-FASTING; NON-FASTING; NON-FASTING; NON-FAST FASTING:YES FASTING: YES T3 UPTAKE 26 22-35 % T4 (THYROXINE), TOTAL 9.7 5.1-11.9 mcg/dL FREE T4 INDEX (T7) 2.5 1.4-3.8 TSH 1.46 0.40-4.50 mIU/L LIPID PANEL, STANDARD (7600) Reviewed date:03/25/2025 10:51:22 AM Interpretation: Performing Lab:[facility] [id number] [address] [facility], [facility] CenterJwjsPW[address] Lorenzo Weir Notes/Report: NON-FASTING; NON-FASTING; NON-FASTING; NON-FASTING; [...] equation in the estimation of LDL-C. Spencer KUMAR et al. SHYAM. 2013;310(19): 5591-8765 (http://education.[facility].com/faq/GDS495) CHOL/HDLC RATIO 2.3 <5.0 (calc) NON HDL CHOLESTEROL 72 <130 mg/dL (calc) For patients with diabetes plus 1 major ASCVD risk factor, treating to a non-HDL-C goal of <100 mg/dL (LDL-C of <70 mg/dL) is considered a therapeutic option. COMPREHENSIVE METABOLIC PANE Rosa (80024) Reviewed date:03/25/2025 10:51:22 AM Interpretation: Performing Lab:[facility], [facility] Dlpl[address]291 [employer], CalligoRauuOM[address] Lorenzo Weir Notes/Report: NON-FASTING; NON-FASTING; NON-FASTING; NON-FASTING; [...] Reviewed date:03/25/2025 10:51:22 AM Interpretation: Performing Lab:[facility], [facility] Hctn0833 [address], CalligoJfgwRX[address] Lorenzo Weir Notes/Report: NON-FASTING; NON-FASTING; NON-FASTING; NON-FASTING; NON-FAST FASTING:YES FASTING: YES MAGNESIUM 1.9 1.5-2.5 mg/dL PHOSPHATE ( PHOSPHORUS) (7 18) Reviewed date:03/25/2025 10:51:23 AM Interpretation: Performing Lab:[facility], [facility] [address], [place] HandRX[address] Lorenzo Weir Notes/Report: NON-FASTING; NON-FASTING; NON-FASTING; NON-FASTING; NON-FAST FASTING:YES FASTING: YES PHOSPHATE ( PHOSPHORUS) 3.9 2.5-4.5 mg/dL CBC (INCLUDES DIFF/PLT) (639 9) Reviewed date:03/25/2025 10:51:23 AM Interpretation: Performing Lab:[facility], [facility] [id number], OpenTrustJyqfRY[address] Lorenzo Weir Notes/Report: NON-FASTING; NON-FASTING; NON-FASTING; NON-FASTING; [...] MPV 10.9 7.5-12.5 fL ABSOLUTE NEUTROPHILS 2904 4245-9615 cells/uL ABSOLUTE LYMPHOCYTES 1390 866-2921 cells/uL ABSOLUTE MONOCYTES 432 200-950 cells/uL ABSOLUTE EOSINOPHILS 101 15-500 cells/uL ABSOLUTE BASOPHILS 10 0-200 cells/uL NEUTROPHILS 60.5 LYMPHOCYTES 28.2 MONOCYTES 9.0 EOSINOPHILS 2.1 BASOPHILS 0.2 B TYPE NATRIURETIC PEPTIDE ( BNP) (51697) Reviewed date:03/25/2025 10:51:23 AM Interpretation: Performing Lab:[facility] [id number] [address] OnlineteH[facility] Healthcare[address] Lorenzo Weir Notes/Report: NON-FASTING FASTING:YES FASTING: YES B TYPE NATRIURETIC PEPTIDE (BNP) 162 <100 pg/mL BNP levels increase with age in the general population with the highest values seen in individuals greater than 75 years of age. Reference: J. Am. Tadeo. Cardiol. 2002; 40:976-982. Urinalysis Reviewed date:12/25/2024 09:01:22 PM Interpretation: Performing Lab: Notes/Report: Color/Clarity yellow Leuk small Nitrite neg Urobili 0.2 Protein neg pH 7.0 Blood neg Sp. Gr. 1.020 Ketone negn Bili neg Glucose neg Microalbumin (In-House) Reviewed date:12/25/2024 09:01:22 PM Interpretation:Normal Performing Lab: Notes/Report: Normal ALB 10mg CRE 100mg A:C <30mg THYROID PANEL WITH TSH (7444 ) Reviewed date:12/28/2024 02:12:51 PM Interpretation: Performing Lab:[facility] Fjpe2211 [facility] Lorenzo Weir Notes/Report: NON-FASTING; NON-FASTING; NON-FASTING; NON-FASTING; NON-FAST FASTING:YES FASTING: YES T3 UPTAKE 28 22-35 % T4 (THYROXINE), TOTAL 10.0 5.1-11.9 mcg/dL FREE T4 INDEX (T7) 2.8 1.4-3.8 TSH 1.60 0.40-4.50 mIU/L COMPREHENSIVE METABOLIC PANE L (REFL) (89128) Reviewed date:12/28/2024 02:12:51 PM Interpretation: Performing Lab:[facility] Ckfe[address]57 [facility] Lorenzo Weir Notes/Report: NON-FASTING; NON-FASTING; NON-FASTING; NON-FASTING; NON-FAST FASTING:YES FASTING: YES GLUCOSE 122 65-99 mg/dL Fasting reference interval For someone without known diabetes, a glucose value between 100 and 125 mg/dL is consistent with prediabetes and should be confirmed with a follow-up test. UREA NITROGEN (BUN) 27 7-25 mg/dL CREATININE 0.69 0.50-1.03 mg/dL EGFR 100 > OR = 60 mL/min/1.73m2 BUN/CREATININE RATIO 39 6-22 (calc) SODIUM 139 135-146 mmol/L POTASSIUM 4.3 3.5-5.3 mmol/L CHLORIDE 103 98-110 mmol/L CARBON DIOXIDE 28 20-32 mmol/L CALCIUM 9.4 8.6-10.4 mg/dL PROTEIN, TOTAL 6.5 6.1-8.1 g/dL ALBUMIN 4.1 3.6-5.1 g/dL GLOBULIN 2.4 1.9-3.7 g/dL (calc) ALBUMIN/GLOBULIN RATIO 1.7 1.0-2.5 (calc) BILIRUBIN, TOTAL 0.4 0.2-1.2 mg/dL ALKALINE PHOSPHATASE 134 37-153 U/L AST 18 10-35 U/L ALT 23 6-29 U/L CBC (INCLUDES DIFF/PLT) (639 9) Reviewed date:12/28/2024 02:12:52 PM Interpretation: Performing Lab:[facility], [facility] [id number], [facility] CenterKcjmHE[address] Lorenzo Weir Notes/Report: NON-FASTING; NON-FASTING; NON-FASTING; NON-FASTING; NON-FAST FASTING:YES FASTING: YES WHITE BLOOD CELL COUNT 5.3 3.8-10.8 Thousand/ uL RED BLOOD CELL COUNT 4.84 3.80-5.10 Million/uL HEMOGLOBIN 13.5 11.7-15.5 g/dL HEMATOCRIT 43.1 35.0-45.0 % MCV 89.0 80.0-100.0 fL MCH 27.9 27.0-33.0 pg MCHC 31.3 32.0-36.0 g/dL For adults, a slight decrease in the calculated MCHC value (in the range of 30 to 32 g/dL) is most likely not clinically significant; however, it should be interpreted with caution in correlation with other red cell parameters and the patient's clinical condition. RDW 13.1 11.0-15.0 % PLATELET COUNT 244 140-400 Thousand/uL MPV 10.0 7.5-12.5 fL ABSOLUTE NEUTROPHILS 3260 5094-2179 cells/uL ABSOLUTE LYMPHOCYTES 1065 090-7514 cells/uL ABSOLUTE MONOCYTES 440 200-950 cells/uL ABSOLUTE EOSINOPHILS 143 15-500 cells/uL ABSOLUTE BASOPHILS 21 0-200 cells/uL NEUTROPHILS 61.5 LYMPHOCYTES 27.1 MONOCYTES 8.3 EOSINOPHILS 2.7 BASOPHILS 0.4 Rapid Covid/Flu A-B Combo Reviewed date:06/19/2024 12:44:38 PM Interpretation: Performing Lab: Notes/Report: Rapid Covid NEG Flu A POS Flu B NEG Medications Medication SIG (Take, Route, Frequency, Duration) [...] BY MOUTH AT BEDTIME; Duration: 90 Active Aspirin 81 MG 1 tab(s) orally once a day Active Famotidine 20 MG 2 tab(s) orally 2 ti mes a day prn; Duration: 30 days prn Active Furosemide 20 MG 1 tab(s) orally ever y other day prn Active Atorvastatin Calcium 80 MG 1 tab(s) orally once a day Active Ozempic (2 MG/DOSE) 8 MG/3ML 0.25mg Subcutaneous weekly; Duration: 30 days 03/21/2025 Not-Taking Spironolactone 25 MG 1 tab(s) orally onc e a day Active Carvedilol 25 MG 1 tablet with food Orally Twice a day; Duration: 90 days Active Immunizations Vaccine Route Administration Date Status Comme nts Flublok IM Intramuscular 02/16/2022 Administered Flublok IM Intramuscular 01/31/2024 Administered Adacel (Tdap) Unknown 05/29/2013 Administered Problems Problem Type SNOMED Code ICD Code Onset Dates Problem Status W/U Status Risk Notes Problem Type 2 diabetes mellitus with other specified complication (E11.69) Active confirmed Problem Psychophysiologic insomnia (601912628) Psychophysiologic insomnia (F51.04) Active confirmed Problem Gastroesophageal reflux disease (579510639) GERD without esophagitis (K21.9) Active confirmed Problem Essential hypertension (42899476) Hypertension, essential (I10) Active confirmed Problem Morbid obesity (646431868) Obesity, morbid, BMI 40.0-49.9 (E66.01) Active confirmed Problem Body mass index 40+ - morbidly obese (325641239) BMI 40.0-44.9, adult (Z68.41) Active confirmed Problem Obesity (029973180) Obesity, unspecified (E66.9) Active confirmed Problem Atherosclerosis of coronary artery without angina pectoris (543216713846046) Atherosclerosis of soboba coronary artery of soboba heart without angina pectoris (I25.10) Active confirmed Problem Fatty liver (669903612) Fatty liver (K76.0) Active confirmed Problem Hyperlipidemia (22733692) Other and unspecified hyperlipidemia (E78.5) Active confirmed Problem Sacroiliitis (96929029) Sacroiliitis (M46.1) Active confirmed Problem Primary hypertension (56644528) Primary hypertension (I10) Active confirmed Problem Cardiac arrhythmia (892591487) Ventricular dysrhythmia (I49.9) Active confirmed Problem Body mass index 40+ - severely obese (486477283) Body mass index [BMI] 45.0-49.9, adult (Z68.42) Active confirmed Vital Signs Heart Rate 60 /min 04/18/2025 Temperature 98.2 degrees Fahrenheit 04/18/2025 Blood pressure diastolic 88 mm Hg 04/18/2025 Height 65 in 04/18/2025 Blood pressure systolic 125 mm Hg 04/18/2025 Weight 317 lbs 04/18/2025 BMI 52.75 kg/m2 04/18/2025 Encounters Encounter Location Date Provider Diagnosis [facility] [address] [place] [address] 08/18/2024 Provider Migration Influenza A J10.1 and Atherosclerosis of soboba coronary artery of soboba heart without angina pectoris I25.10 [facility] [address] [address] 06/19/2024 Delio Arcos Fever, unspecified R50.9 and Influenza A J10.1 [facility] [address] [address] 08/30/2024 Delio Spearseamon Type 2 diabetes mellitus with other specified complication E11.69 ; Body mass index [BMI] 45.0-49.9, adult Z68.42 ; Hypertension, essential I10 and Atherosclerosis of soboba coronary artery of soboba heart without angina pectoris I25.[address] [address] 11/20/2024 Delio Arcos Body mass index [BMI ] 45.0-49.9, adult Z68.[address] [address] 12/25/2024 Delio Arcos Other and unspecifie d hyperlipidemia E78.5 ; Prediabetes R73.03 ; Obesity, Class III, BMI 40-49.9 (morbid obesity) E66.813 ; Family history of heart disease Z82.49 ; History of mammography, screening Z92.89 and Routine medical exam Z00.[address] [address] 03/21/2025 Delio Arcos Ventricular dysrhyth tatyana I49.9 ; Trigeminy R00.8 ; Atherosclerosis of soboba coronary artery of soboba heart without angina pectoris I25.10 ; Generalized abdominal pain R10.84 and Snoring R06.[address] [address] 04/18/2025 Delio Arcos Type 2 diabetes mellitus with other specified complication E11.69 ; Obesity, unspecified E66.9 ; Snoring R06.83 and Trigeminy R00.[address] [address] 06/29/2024 Delio Arcos Atherosclerosis of soboba coronary artery of soboba heart without angina pectoris I25.[address] [address] 09/18/2024 Delio Arcos Atherosclerosis of soboba coronary artery of soboba heart without angina pectoris I25.[address] [address] 12/28/2024 Delio Arcos Family history of he art disease Z82.[address] [address] 03/19/2025 [facility] [address] [place] [address] 03/21/2025 Delio Arcos Generalized abdomina l pain R10.84 and Fatty liver K76.0 [facility] [address] [place] [address] 03/21/2025 Delio Arcos Snoring R06.83 Assessments Encounter Date Diagnosis (ICD Code) Assessment Notes Treatment Notes Treatment Clinical Notes Section Notes 06/19/2024 Fever, unspecified (ICD-10 - R50.9) 06/19/2024 Influenza A (ICD-10 - J10.1) Discussed the etiology and expected course of influenza. Discussed the decision to treatment versus nontreatment with Tamiflu as noted above. Discussed the expectations and limitations of Tamiflu as an antiviral. Discussed supportive care with antipyretics, antiemetics, antitussives, and oral hydration. Stressed the importance of oral hydration. Discussed signs and symptoms of worsening condition, especially difficulty breathing, or changes in mental status and need for reassessment in clinic or ED. 06/29/2024 Atherosclerosis of soboba coronary artery of soboba heart without angina pectoris (ICD-10 - I25.10) 08/18/2024 Influenza A (ICD-10 - J10.1) 08/18/2024 Atherosclerosis of soboba coronary artery of soboba heart without angina pectoris (ICD-10 - I25.10) 08/30/2024 Type 2 diabetes mellitus with other specified complication (ICD-10 - E11.69) Overall very nicely. Will check A1c in 4 months. Continue Ozempic. 08/30/2024 Body mass index [BMI] 45.0-49.9, adult (ICD-10 - Z68.42) Discussed working in some resistance training/exercise issues and making sure she does not lose muscle mass. She will try this over the summer and try to accelerate weight loss as she continues on GLP 09/18/2024 Atherosclerosis of soboba coronary artery of soboba heart without angina pectoris (ICD-10 - I25.10) 11/20/2024 Body mass index [BMI] 45.0-49.9, adult (ICD-10 - Z68.42) - Current weight 284 lbs - Previously on Ozempic for around 6 months, tolerated well and lost about 50 lbs - Insurance stopped covering Ozempic around 2 months ago. She has since gained back about 10 lbs - Noticing appetite has increased since stopping Ozempic. Patient is not diabetic so insurance will not likely cover GLP-1 - Encouraged lifestyle changes including increasing activity level - Will trial phentermine, counseled to take in AM to decrease insomnia. Return to care in 4 weeks 12/25/2024 Other and unspecified hyperlipidemia (ICD-10 - E78.5) Will check labs to monitor her response to statin therapy. Please note I will review all labs personally. 12/25/2024 Prediabetes (ICD-10 - R73.03) A1c at last visit 5.8%. Clearly patient is headed towards diabetes. I am disappointed that her insurance will not cover the medication. Will try again based on additional FDA approval for this medicine to reduce family history of cardiac disease. She would greatly benefit from GLP therapy and has done well with this in the past 12/28/2024 Family history of heart disease (ICD-10 - Z82.49) 03/21/2025 Ventricular dysrhythmia (ICD-10 - I49.9) EKG shows multiple PVCs in a trigeminy pattern. Recommended the patient stay on slightly lower dose beta-kizzy at 12.5 given her relatively low blood pressure and low heart rate. We will see if her cardiology group at [facility] can see her little earlier. I will check metabolic studies including electrolytes and thyroid levels. Discussed with her symptoms of presyncope, dizziness or heart racing that would mandate going to the ER. 03/21/2025 Trigeminy (ICD-10 - R00.8) 03/21/2025 Generalized abdominal pain (ICD-10 - R10.84) 03/21/2025 Snoring (ICD-10 - R06.83) 04/18/2025 Type 2 diabetes mellitus with other specified complication (ICD-10 - E11.69) Repeat BMP, A1c today If elevated, will resume GLP-1 and titrate to highest dose 04/18/2025 Obesity, unspecified (ICD-10 - E66.9) 04/18/2025 Snoring (ICD-10 - R06.83) Ordered Sleep Study 03/21/2025 Atherosclerosis of soboba coronary artery of soboba heart without angina pectoris (ICD-10 - I25.10) Given her history of atherosclerosis and stent placement it is imperative that she be on a GLP. We will try to get this preauthorized. 03/21/2025 Fatty liver (ICD-10 - K76.0) 12/25/2024 Obesity, Class III, BMI 40-49.9 (morbid obesity) (ICD-10 - E66.813) Continue discussed diet and exercise, she has been doing a reasonable job changing intake but still would require pharmacologic therapy 08/30/2024 Hypertension, essential (ICD-10 - I10) Blood pressure been low. Recommended only doing one half of losartan daily. 08/30/2024 Atherosclerosis of soboba coronary artery of soboba heart without angina pectoris (ICD-10 - I25.10) Discussed with her stopping DAPT therapy and stop Effient. Patient feels much better with weight loss. Had 1 blockage that was stented. Clearly out of range of DAPT therapy. Otherwise on goal-directed therapy with high intensity statin, good blood pressure control, continued weight loss and GLP agent 12/25/2024 Family history of heart disease (ICD-10 - Z82.49) Trial of semaglutide for FDA indicated family history of heart disease. Very strong family history, she has significant risk factors with her lipid issues and prediabetes 03/21/2025 Generalized abdominal pain (ICD-10 - R10.84) Patient also reports generalized abdominal pain, high risk for fatty liver, will check liver ultrasound and labs 04/18/2025 Trigeminy (ICD-10 - R00.8) Agree w/ Cardiology plan for monitor (completed), TTE, stress test; next appt 04/25 Continue Carvedilol 25 mg BID 03/21/2025 Snoring (ICD-10 - R06.83) reports snoring, high risk for sleep apnea, will check this also 12/25/2024 History of mammography, screening (ICD-10 - Z92.89) Needs mammogram ordered 12/25/2024 Routine medical exam (ICD-10 - Z00.00) Up-to-date with colon screening and bone density testing. Needs mammogram. Lifelong non-smoker. Is due for shingles vaccine. She like to hold off at this point, we will talk about this in 3 months. Otherwise healthcare maintenance up-to-date. Depression screening negative. Plan Of Treatment Pending Test Test Name Order Date Ultrasound : Kidneys, Bilateral 04/15/20 Ultrasound : Abdomen 03/21/2025 X ray : Spines, Lumbosacral 10/26/2016 Sleep Study 03/21/2025 Physical Therapy 10/28/2016 Mammogram : Bilateral 12/25/2024 C-CMP 04/15/2017 C-LIPID PANEL 04/15/2017 M-Vitamin B12 03/31/2021 C-COVID-19 PCR 11/22/2019 BASIC METABOLIC PANEL (30869) 04/18/2025 HEMOGLOBIN A1c (496) 04/18/2025 Future Test Test Name Order Date M-Comprehensive Metabolic Panel 01/26/20 M-Lipid Panel 01/25/2019 Next Appt Details Provider Name:Delio Arcos, 06/13/2025 09:15:00 AM, [address], [address], Insurance Providers Payer Name Payer Address Payer Phone Subscriber Number Group Number Insured Name Patient Relationship to Insured Coverage Start Date Coverage End Date [facility] [address] [place] [address] [id number] Neeru Pérez Self - patient is the insured Medications Administered Medication Instructions Date of Administration Dosage Notes [...] Kenalog 01/21/2014 1 Kenalog 01/29/2015 1 mL Medical (General) History Medical History History ICD Code uterine fibroid-hysterectomy HTN Hyperlipidemia Morbid Obesity Seasonal allergies headache disorder-negative MRI May 17 018, normal sedimentation rate Normal mammogrm 06/04 and 07/2022 and 04/16 Normal DEXA 05/2019 negative cologuard testing March 2020 and 05/08 CAD Surgical History Surgery Date(Month/Year) partial hysterectomy repair fallopian tube cholecystectomy Stent 09/2023 Hospitalization History Reason Date(Month/Year) ulcers
--- OUTSIDE RECORDS SUMMARY | 2025-04-22 07:04 | XMS_ITS ---
Author Organization Unknown ENCOUNTERS Encounter Performer Location Date Diagnosis Diagnosis Status Emergency Raphael Winston [address] [place] [place] [address] [id number] TINO Pre Admit [address] [place] [address] [id number] Emergency Neeru Townsend [address] [place] [address] [id number] TINO Emergency [place] [address] [place] [address] [id number] TINO *Note: Encounters from your own facility or health system may be excluded. Allergies, Adverse Reactions, Alerts Allergen Type Severity Identification Date Medications Name Date Quantity Days Supplied GPI Number
[2025-04-22 08:10] VITALS: BP 112/67; PULSE 55; RESP 16
[2025-04-22] MEDS: ISOTOPE MYOVIEW (PER STUDY) 1 DOSE IV (08:36)
[2025-04-22] MEDS: SODIUM CHLORIDE 0.9% 10ML SYR (RAD ONLY) 10 ML IV ×2 (08:36)
--- NOTE | 2025-04-22 08:53 | PC.NURSE ---
During Lexiscan infusion, patient had rate related LBBB, patient reported known history of LBBB, asymptomatic at time of arrhythmia. Converted to normal sinus rhythm prior to discharge from stress testing.
[2025-04-22] MEDS: DEFINITY US ECHO CONTRAST 2ML INJ 2 MG IV (09:58)
--- NOTE | 2025-04-22 10:15 | CA_ITS ---
APPROVED REPORT EXAM: Comprehensive 2D, Doppler, and color-flow Echocardiogram with contrast Wearing Apparel Assembler: Malia Donnelly CRT Ht: 5 ft 5 in Wt: 310lbs BSA: 2.38 BP: 207/85 mmHg Indications: Abnormal ECG, Shortness of Breath, Palpitations, Hypertension/HDD Echo Enhancing Agent Indication: Endocardial border delineation Agent(s) / Amount(s) Used: Definity 2 cc Comments: Definity given 2D Dimensions LA Volume 73.10 mL LA Volume Index 30.00 mL/m2 (M/F) 16-34 M-Mode Dimensions RVDd 3.09 cm (0.9-2.6) LA Diam 4.50 cm (1.9-4.0) LVDd 4.38 cm (3.5-5.7) LVDs 3.05 cm (3.5-5.7) IVSd 2.09 cm (0.6-1.1) PWd 0.80 cm (0.6-1.1) EF (Teich) 58.10% FS 30.40% EDV (Teich) 86.80 mL TAPSE 1.88 (<1.7) ESV (Teich) 36.40 mL LV Diastology E Decel Time 210 (160-240 msec) E/A Ratio 1.02 MED A' 10.60 cm/s LAT A' 10.60 cm/s Aortic Valve AO Peak GR. 8.00 mmHg Mitral Valve MV A Velocity 91.0 (40-130 cm/s) E/A Ratio 1.02 Pulmonary Valve PV Peak Velocity 99.0 (50-150 cm/s) Tricuspid Valve TR P. Velocity 287.00 cm/s RAP Estimate 10.00 mmHg RVSP 42.80 mmHg Left Ventricle The left ventricle is normal size. Left ventricular systolic function is normal. The left ventricular ejection fraction is within the normal range. There is increased left ventricular wall thickness. The septum is asynchronous. The left ventricular diastolic function is normal. LVEF is 55-60% Right Ventricle The right ventricle is mildly dilated. The right ventricular systolic function is normal. Atria Left atrium is mildly dilated. Right atrium is mildly dilated. There is no color Doppler evidence of interatrial shunt. Aortic Valve The aortic valve is mildly thickened. There is no hemodynamically significant aortic valvular stenosis. Trace aortic regurgitation is present. Mitral Valve The mitral valve is normal in structure. No evidence of mitral valve stenosis. Mild mitral regurgitation is present. Tricuspid Valve The tricuspid valve leaflets are thin and pliable. Mild tricuspid regurgitation. RVSP is 20-25 mmHg. Pulmonic Valve The pulmonary valve is grossly normal in structure. Trace pulmonic valve regurgitation is present. Great Vessels The aortic root is normal in size. IVC is normal in size and collapses >50% with inspiration. Pericardium There is no pericardial effusion. Other Information Study Quality: Fair Conclusion Normal biventricular systolic function. Asynchronous septum. Mild RV dilation. Mild biatrial dilation. Mild MR, mild TR. Electronically signed by : Paige Rush MD 04/25/2025 01:28:30
== END 2025-04-22 23:59 | disposition home or self-care (01) ==
LOC: RAD 07:00
PROVIDERS: PCP Internal Medicine Adolescent Medicine; Visit Provider Internal Medicine
DX: I08.1 Rheumatic disorders of both mitral and tricuspid valves (principal); I11.9 Hypertensive heart disease without heart failure; I44.7 Left bundle-branch block, unspecified; I25.118 Atherosclerotic heart disease of native coronary artery with other forms of angina pectoris; R93.1 Abnormal findings on diagnostic imaging of heart and coronary circulation; R94.39 Abnormal result of other cardiovascular function study; R94.31 Abnormal electrocardiogram [ECG] [EKG]; R00.8 Other abnormalities of heart beat
CPT/HCPCS: 78452; 93017; 93018; 93306; A9502; J2785; Q9957

== ENCOUNTER 2025-04-23 15:50 | Outpatient (CLI) | payer BC, SELFPAY ==
--- NOTE | 2025-04-23 15:52 | MM_ITS ---
PROCEDURE INFORMATION: Exam: MG Bilateral Screening 3D Mammography Exam date and time: 04/23/2025 3:56 PM Age: 60 years old Clinical indication: Screening examination TECHNIQUE: Imaging protocol: Bilateral Screening tomosynthesis and 2D mammography including computer-aided detection (CAD) when performed. COMPARISON: 1. MG MM DIG SCREENING MAMM BI W/CAD 04/20/2024 4:47 PM 2. MG MM DIG SCREENING MAMM BI W/CAD 07/23/2022 7:54 AM FINDINGS: MAMMOGRAPHY: Breast composition: The breasts are almost entirely fatty. Mass: No suspicious masses. Architectural distortion: None. Calcifications: No suspicious calcifications. Asymmetric density: None. Skin thickening: None. Axillary adenopathy: None. IMPRESSION: No mammographic evidence of malignancy. Annual screening is recommended unless otherwise clinically indicated. ASSESSMENT: BI-RADS Category 1: Negative.
== END 2025-04-23 23:59 | disposition home or self-care (01) ==
LOC: RAD 15:51
PROVIDERS: PCP Internal Medicine Adolescent Medicine; Visit Provider Internal Medicine Adolescent Medicine
DX: Z12.31 Encounter for screening mammogram for malignant neoplasm of breast (principal)
CPT/HCPCS: 77063; 77067